=== PATIENT | female | born 1940 | race Caucasian/White ===

== ENCOUNTER 2023-08-16 05:45 | Inpatient (IN) | payer OTHER ==
[2023-08-16] MEDS ORDERED: dilTIAZem HCL 25 MG/5 ML VIAL IV ONE ×2 (06:18→06:47)
[2023-08-16] MEDS ORDERED: TRANEXAMIC ACID 1,000 MG/10 ML VIAL IV ONE (06:18)
[2023-08-16] MEDS ORDERED: LORazepam 2 MG/ML VIAL ONE (06:19)
[2023-08-16] MEDS ORDERED: NA CHLORIDE 0.9% 1,000 ML ONE (06:19)
[2023-08-16] MEDS ORDERED: NA CHLORIDE 0.9% 100 ML ONE ×2 (06:19→06:48)
[2023-08-16] MEDS ORDERED: NA CHLORIDE 0.9% 250 ML ONE ×3 (06:33→14:17)
[2023-08-16] MEDS: dilTIAZem HCL 25 MG/5 ML VIAL IV ONE (06:41)
[2023-08-16 06:55] LABS: Absolute Basophils 0.1 K/uL (0-0.5); Absolute Eosinophils 0.1 K/uL (0-0.5); Absolute Lymphocytes (CBC) 1.8 K/uL (0.7-4.9); Absolute Monocytes 1.1 K/uL (0.1-1.3); Absolute Neutrophil 8.8 K/uL (1.8-8.0); Basophils % 0.4 % (0-1.3); Hematocrit 29.3 % (36.0-45.0); Hemoglobin 9.7 g/dL (12.0-15.0); MCH 30.4 pg (27.0-35.0); MCHC 33.2 g/dL (32.0-36.0); MCV 91.7 fL (80-100); Monocytes % 9.3 % (3.3-12.3); Neutrophils % 74.3 % (41.7-73.7); Nucleated Red Blood Cells % 0.3 % (0-0); Platelets 329 thou/uL (152-406); Red Cell Distribution Width 13.2 % (12.1-15.2)
[2023-08-16] MEDS ORDERED: ALBUMIN HUMAN 25% 100 ML IV ONE (07:01)
[2023-08-16 07:15] LABS: PT Prothrombin Time 13.3 SECONDS (9.5-12.5); Protime INR 1.22
[2023-08-16 07:20] LABS: ALT/SGPT 12 U/L (13-56); AST/SGOT 12 U/L (15-37); Albumin 2.7 g/dL (3.4-5.0); Albumin/Globulin Ratio 0.8 (1.1-1.8); Alkaline Phosphatase 78 U/L (45-117); Anion Gap 5.9 mEq/L (5.0-15.0); BUN Blood Urea Nitrogen 23 mg/dL (7-18); Bicarbonate 29 mEq/L (21-32); Bilirubin Total 0.2 mg/dL (0.2-1.0); Globulin 3.3 g/dL (2.3-3.5); Glomerular Filtration Rate 67 ml/min (=/>90); Glucose Level 114 mg/dL (74-106); NT PRO-BNP 646 pg/mL (<450); Potassium 3.9 mEq/L (3.5-5.1); Sodium Level 139 mEq/L (136-145); Troponin High Sensitivity 14.1 pg/mL (<58.9)
[2023-08-16 07:24] LABS: Bilirubin Direct < 0.1 mg/dL (0-0.2); Bilirubin Indirect, Calculated ND mg/dL (0.2-0.8)
[2023-08-16] MEDS ORDERED: PANTOPRAZOLE 40 MG INJ ONE (07:37)
[2023-08-16] MEDS: PANTOPRAZOLE INJ 80 MG in NA CHLORIDE 0.9% 250 ML IV ONE (08:00)
--- NOTE | 2023-08-16 08:02 | EDPHYS ---
Physician Documentation [facility] Name: Luz Wheatley Age: 83 yrs Sex: Female : 1940 Arrival Date: 08/16/2023 Time: 05:45 Bed 4 Private MD: ED Physician Regan Wright HPI: 08/15 07:39 This 83 yrs old Female presents to ER via EMS with complaints of Rectal Bleeding. sp4 07:53 83-year-old female past medical history of IBS and osteoporosis presents with acute sp4 lower GI bleed associated with a rapid heart rate. Rectal bleed started yesterday. . Patient presents with EMS. She states she takes PRN baby aspirin at home but not on scheduled blood thinners. . Historical: - Allergies: 05:59 No Known Allergies; cm10 - PMHx: 05:59 ibs; Osteoporosis; cm10 - Immunization history:: Adult Immunizations up to date. - Infectious Disease History:: Denies. - Social history:: Smoking status: Patient denies any tobacco usage or history of. - Family history:: not pertinent. ROS: 07:53 Constitutional: Negative for fever, chills, and weight loss, positive anxiety, sp4 positive tachycardia, positive rectal bleed 07:53 All other systems are negative, Exam: 07:53 Constitutional: This is a well developed, well nourished patient who is awake, alert, sp4 frail elderly female pale appearing and tachycardic. Head/Face: Normocephalic, atraumatic. Eyes: Pupils equal round and reactive to light, extra-ocular motions intact. Lids and lashes normal. Conjunctiva and sclera are not injected. Cornea within normal limits. Periorbital areas with no swelling, redness, or edema. ENT: Nares patent. No nasal discharge, no septal abnormalities noted. Tympanic membranes are normal and external auditory canals are clear. Oropharynx with no redness, swelling, or masses, exudates, or evidence of obstruction, uvula midline. Mucous membranes moist. Neck: Trachea midline, no thyromegaly or masses palpated, and no cervical lymphadenopathy. Supple, full range of motion without nuchal rigidity, or vertebral point tenderness. Chest/axilla: Normal chest wall appearance and motion. Nontender with no deformity. No lesions are appreciated. Cardiovascular: Tachycardic on arrival, appears to have regular tachycardia. No gallops, murmurs, or rubs. Normal PMI, no JVD. No pulse deficits. Generalized pallor Respiratory: Lungs have equal breath sounds bilaterally, clear to auscultation and percussion. No rales, rhonchi or wheezes noted. No increased work of breathing, no retractions or nasal flaring. Abdomen/GI: Soft, with normal bowel sounds. No distension or tympany. No guarding or rebound. No evidence of tenderness throughout. Digital rectal exam reveals dark red blood per rectum. Back: No spinal tenderness. No costovertebral tenderness. Skin: Warm, dry with normal turgor. Pale but present , no lesions, and no evidence of cellulitis. MS/ Extremity: Pulses equal, no cyanosis. Neurovascular intact. Full, normal range of motion. Neuro: Awake and alert, GCS 15, oriented to person, place, time, and situation. Cranial nerves II-XII grossly intact. Motor strength 5/5 in all extremities. Sensory grossly intact. Psych: Awake, alert, with orientation to person, place and time. Behavior, mood, and affect are within normal limits 07:53 ECG was reviewed by the Attending Physician. EKG at 0 555 reveals atrial flutter with arrival AV block. Atrial flutter at the rate of 155 Vital Signs: 05:49 BP 129 / 55; Pulse 124; Resp 14; Temp 98.3; Pulse Ox 94% on R/A; Pain 0/10; cm10 06:00 BP 96 / 48; Pulse 155; Resp 20 S; Pulse Ox 94% on R/A; jw7 06:30 BP 100 / 46; Pulse 82; Resp 20 S; Pulse Ox 92% on R/A; jw7 07:00 BP 93 / 53; Pulse 95; Resp 23 S; Pulse Ox 97% on R/A; jw7 07:39 BP 134 / 54; Pulse 85; Resp 16 S; Temp 97.4(O); Pulse Ox 99% on R/A; kc6 09:02 BP 118 / 58; Pulse 85; Resp 18 S; Pulse Ox 99% on R/A; kc6 05:49 Pain Scale: Adult cm10 [place] Coma Score: 07:53 Eye Response: spontaneous(4). Motor Response: obeys commands(6). Verbal Response: sp4 oriented(5). Total: 15. MDM: 05:59 Patient medically screened. sp4 07:58 Differential diagnosis: hemorrhoids, fissure, abscess, condyloma. Data reviewed: vital sp4 signs, nurses notes, EMS record, old medical records, lab test result(s), EKG, radiologic studies, plain films. ED course: CLINICAL HISTORY: CHEST PAIN COMPARISON: None. TECHNIQUE: XR CHEST 1 VIEW 08/16/2023 5:57 AM CDT FINDINGS: The heart is mildly enlarged. Lungs are clear without consolidation, atelectasis, mass or edema. There is no pleural effusion. There is no pneumothorax. There are no acute osseous findings. IMPRESSION: Clear lungs. Electronically signed by: Jairo Mccray MD 08/16/2023 06:47 AM CDT. 08:01 Consideration of Admission/Observation Patient was admitted/placed on observation. sp4 Escalation of care including admission/observation considered. ED course: Patient presents with acute lower GI bleed and a rapid atrial flutter, patient at this time stabilized with 2 units stat blood transfusion and data solutions architect has seen the patient. Dr. Lyman recommended Bleeding Scan and ICU admission. Also 2 Units Platelet transfusion ordered. Patient at this time is stable blood pressure. Patient will be admitted to ICU under Dr. Cruz. Dr. Davidson with general surgery was consulted. Dr. Mcdowell with cardiology was consulted for atrial flutter. Atrial flutter has resolved with Cardizem bolus 10 mg. Patient stable for admission to ICU at this time.. 08/15 05:57 Order name: Basic Metabolic Panel; Complete Time: 07:38 sp4 08/15 05:57 Order name: CBC with Diff; Complete Time: 07:38 4 08/15 05:57 Order name: LFT's; Complete Time: 07:38 sp4 08/15 05:57 Order name: Magnesium; Complete Time: 07:38 4 08/15 05:57 Order name: NT PRO-BNP; Complete Time: 07:38 4 08/15 05:57 Order name: PT-INR; Complete Time: 07:38 sp4 08/15 05:57 Order name: Troponin HS; Complete Time: 07:38 sp4 08/15 05:57 Order name: Type And Screen sp4 08/15 06:24 Order name: Packed RBC Leukored EDMD 08/15 07:22 Order name: ABO/RH no charge; Complete Time: 07:38 EDMD 08/15 10:15 Order name: CBC with Diff iw 08/15 11:07 Order name: CBC with Automated Diff EDMD 08/15 05:57 Order name: XRAY Chest (1 view) sp4 08/15 11:58 Order name: CT EDMD 08/15 13:14 Order name: CT [facility] 08/15 07:30 Order name: CONS Physician Consult [facility] 08/15 05:57 Order name: Cardiac monitoring; Complete Time: 06:36 sp4 08/15 05:57 Order name: EKG - Nurse/Tech; Complete Time: 06:36 sp4 08/15 05:57 Order name: IV Saline Lock; Complete Time: 06:36 sp4 08/15 05:57 Order name: Labs collected and sent; Complete Time: 06:36 sp4 08/15 05:57 Order name: O2 Per Protocol; Complete Time: 06:36 sp4 08/15 05:57 Order name: O2 Sat Monitoring; Complete Time: 06:36 sp4 08/15 05:58 Order name: NPO; Complete Time: 06:46 sp4 08/15 05:59 Order name: Saline Lock; Complete Time: 06:46 4 08/15 06:39 Order name: Labs - recollect needed: RECOLLECT ALL; Complete Time: 06:46 ty EC:53 Rate is 155 beats/min. Rhythm is irregularly irregular, A flutter. QRS [place] is Normal. sp4 QRS interval is normal. QT interval is normal. No ST changes noted. Clinical impression: Atrial Flutter. Interpreted by me. Reviewed by me. Administered Medications: 06:35 Drug: Diltiazem IVP 10 mg IVP once; Over 2 minutes Route: IVP; Site: right forearm; jb4 07:55 Follow up: Response: No adverse reaction; Marked relief of symptoms jw7 06:35 Drug: tranexamic acid 1000 mg IV at calculated rate once; administer at a rate not to jb4 exceed 100 mg per min Route: IV; Rate: calculated rate; Site: right forearm; 06:35 Drug: Ativan IVP 0.5 mg IVP once Route: IVP; Site: right forearm; jb4 06:35 Drug: NS 0.9% IV 1000 ml IV at 125 ml/hr continuous Route: IV; Rate: 125 ml/hr; Site: jb4 right forearm; 09:03 Follow up: Response: No adverse reaction; IV Status: Infusion continued upon admission; kc6 IV Intake: 1000ml 07:15 Not Given (Physician Discretion): wxtjyvf85.5 grams 50 ml IVPB once; (Note: albumin 25% sp4 concentration) 07:15 Drug: Albumin IVPB 25 grams 100 ml IVPB once; (Note: Albumin 25% concentration) Volume: jb4 100 ml; Route: IVPB; Site: right antecubital; 08:08 Follow up: Response: No adverse reaction; IV Status: Completed infusion; IV Intake: kc6 100ml 07:35 Drug: Albumin IVPB 25 grams 100 ml IVPB once; (Note: Albumin 25% concentration) Volume: jb4 100 ml; Route: IVPB; Site: left wrist; 07:49 Follow up: Response: No adverse reaction; IV Status: Completed infusion; IV Intake: kc6 100ml 07:49 Drug: Pantoprazole IVP 80 mg IVP once Route: IVP; Site: right forearm; ph 08:09 Follow up: Response: No adverse reaction kc6 08:09 Drug: Pantoprazole IV 8 mg/hr IV at 25 ml/hr continuous; (Standard dilution is 80 mg in kc6 250 mL NS) Route: IV; Rate: 25 ml/hr; Site: right forearm; 09:02 Follow up: Response: No adverse reaction; IV Status: Infusion continued upon admission; kc6 IV Intake: 250ml Disposition Summary: 08/16/23 08:01 Hospitalization Ordered Notes: Hospitalization Status: Inpatient Admission sp4 Provider: Liam Cruz sp4 Condition: Stable sp4 Problem: new sp4 Symptoms: have improved sp4 Bed/Room Type: Standard sp4 Location: Intensive Care Unit(08/16/23 12:04) [facility] Room Assignment: 8-(08/16/23 12:04) [facility] Diagnosis - GI Bleed/ Gastrointestinal hemorrhage, unspecified sp4 - Acute lower GI bleed, atrial flutter sp4 Discharge Instructions: - Discharge Summary Sheet rn Forms: - SBAR form rn - Medication Reconciliation Form sp4 - Leadership Thank You Letter sp4 Critical care time excluding procedures: 08:03 Critical care time: Bedside Care: 46 minutes, Consultation: 12 minutes. Total time: 58 sp4 minutes Signatures: Dispatcher [employer] EDMS SandyAnnetta Amy Canas, RN RN Allen Figueroa, RN RN jb4 Basim Hastings, RN RN ja1 Corinna Moreau, RN RN kc6 Simi Lopez, PA-C PA-C paradise4 Regan Wright MD MD sp4 Omayra Davidson RN RN cm10 Kailash Orellana Jodi RN jw7 Corrections: (The following items were deleted from the chart) 05:57 05:57 BASIC METABOLIC PANEL+C.LAB.BRZ ordered. EDMS EDMS 05:57 05:57 CBC+H.LAB.BRZ ordered. EDMS EDMS 05:57 05:57 HEPATIC FUNCTION+C.LAB.BRZ ordered. EDMS EDMS 05:57 05:57 MAGNESIUM+C.LAB.BRZ ordered. EDMS EDMS 05:57 05:57 PROBNP+C.LAB.BRZ ordered. EDMS EDMS 05:57 05:57 PROTIME (+INR)+COAG.LAB.BRZ ordered. EDMS EDMS 05:57 05:57 Troponin High Sensitivity+C.LAB.BRZ ordered. EDMS EDMS 05:58 05:57 Chest Single View+RAD.RAD.BRZ ordered. EDMS EDMS 05:58 05:58 TYPE AND SCREEN+BB.LAB.BRZ ordered. EDMS EDMS 06:24 05:58 PACKED RBC LEUKORED+BB.LAB.BRZ ordered. EDMS EDMS 06:24 06:01 ABO/RH typing ordered. EDMS EDMS 06:24 06:01 Antibody Screen ordered. EDMS EDMS 07:52 07:52 BB Add On+BB.LAB.BRZ ordered. EDMS EDMS 09:25 08:01 Intensive Care Unit sp4 bd 09:25 08:01 sp4 bd 12:04 09:25 BR ER HOLD bd ja1 12:04 09:25 ERHOLD- bd ja1
--- NOTE | 2023-08-16 08:02 | ER ---
Nurse's Notes [facility] Name: Luz Wheatley Age: 83 yrs Sex: Female : 1940 Arrival Date: 08/16/2023 Time: 05:45 Bed 4 Private MD: Diagnosis: GI Bleed/ Gastrointestinal hemorrhage, unspecified;Acute lower GI bleed, atrial flutter Presentation: 08/15 05:49 Chief complaint: Patient states: Rectal bleeding onset yesterday at 1530. Pt states cm10 that she was having lower abdominal pain. Pt noted to be bleeding at this time. Coronavirus screen: Client denies travel out of the [place] in the last 14 days. At this time, the client does not indicate any symptoms associated with coronavirus-19. Ebola Screen: Patient denies travel to an Ebola-affected area in the 21 days before illness onset. No symptoms or risks identified at this time. Initial Sepsis Screen: Does the patient meet any 2 criteria? HR > 90 bpm. Does the patient have a suspected source of infection? No. Patient's initial sepsis screen is negative. Risk Assessment: Do you want to hurt yourself or someone else? Patient reports no desire to harm self or others. Onset of symptoms was August 16, 2023. 05:49 Method Of Arrival: EMS: [facility] cm10 05:49 Acuity: DAVID 2 cm10 Triage Assessment: 06:00 General: Appears in no apparent distress. comfortable, Behavior is calm, cooperative. cm10 GI: Rectal exam: Bleeding noted. Historical: - Allergies: 05:59 No Known Allergies; cm10 - PMHx: 05:59 ibs; Osteoporosis; cm10 - Immunization history:: Adult Immunizations up to date. - Infectious Disease History:: Denies. - Social history:: Smoking status: Patient denies any tobacco usage or history of. - Family history:: not pertinent. Screenin:00 [facility] ED Fall Risk Assessment (Adult) History of falling in the last 3 months, jw7 including since admission Yes- single mechanical fall (1 pt) Confusion or Disorientation No (0 pts) Intoxicated or Sedated No (0 pts) Impaired Gait Yes (1 pt) Mobility Assist Device Used No (0 pt) Altered Elimination Yes (1 pt) Score/Fall Risk Level 3 or more points = High Risk Oriented to surroundings, Maintained a safe environment, Educated pt \\T\\ family on fall prevention, incl call for assistance when getting out of bed, Assessed \\T\\ reinforced patient's understanding of fall precautions, Provided non-skid footwear, Hourly rounding (assess needs \\T\\ fall precautionary measures) done. Abuse screen: Denies threats or abuse. Denies injuries from another. Nutritional screening: No deficits noted. Tuberculosis screening: No symptoms or risk factors identified. Assessment: 06:00 General: Appears in no apparent distress. comfortable, Behavior is calm, cooperative, jw7 appropriate for age, anxious. Pain: Complains of pain in abdomen Pain does not radiate. Pain currently is 3 out of 10 on a pain scale. Quality of pain is described as crampy, Pain began suddenly, Is continuous. Neuro: Level of Consciousness is awake, alert, obeys commands, Oriented to person, place, time, situation, Appropriate for age. Cardiovascular: Heart tones S1 S2 present Capillary refill < 3 seconds Clubbing of nail beds is absent JVD is absent Patient's skin is warm and dry. Respiratory: Airway is patent Trachea midline Respiratory effort is even, unlabored, Respiratory pattern is regular, symmetrical. GI: Abdomen is flat, non-distended, Bowel sounds present X 4 quads. Abd is soft and non tender X 4 quads. GI: Reports cramping, bloody stool. : No deficits noted. No signs and/or symptoms were reported regarding the genitourinary system. EENT: No deficits noted. No signs and/or symptoms were reported regarding the EENT system. Derm: Skin is healthy with good turgor, is fragile, Skin is dry, Skin is normal, Skin temperature is warm. Musculoskeletal: Circulation, motion, and sensation intact. Range of motion: intact in all extremities. 06:30 General: Pt stated "I'm passing clots", during brief change large quantities of blood jw7 clots were soaked through brief and had soaked through sheets, blankets and patients gown. Provider called upon finding and emergent orders for massive blood transfusion started per Dr. Wright.. 07:00 General: Appears in no apparent distress. comfortable, well groomed, well developed, kc6 Behavior is calm, cooperative, appropriate for age. Neuro: Level of Consciousness is awake, alert, obeys commands, Oriented to person, place, time, situation, Appropriate for age. Cardiovascular: Denies chest pain, Heart tones S1 S2 present Capillary refill < 3 seconds. Respiratory: Airway is patent Trachea midline Respiratory effort is even, unlabored, Respiratory pattern is regular, symmetrical, Denies shortness of breath. GI: Abdomen is flat, non-distended, Bowel sounds present X 4 quads. Abd is soft and non tender X 4 quads. Reports rectal bleeding, bloody stool, Patient currently denies diarrhea, nausea, vomiting. : No signs and/or symptoms were reported regarding the genitourinary system. EENT: No signs and/or symptoms were reported regarding the EENT system. Derm: Skin is intact, is fragile, with poor turgor Skin is dry, Skin is pale, Skin temperature is cool. Musculoskeletal: No signs and/or symptoms reported regarding the musculoskeletal system. Circulation, motion, and sensation intact. Capillary refill < 3 seconds, Range of motion: intact in all extremities. 07:15 General: Per Dr. Wright, will transfuse two units of Emergent Blood. Two units of O jw7 Negative blood started. See Transfusion Records for vital signs.. 07:38 Reassessment: Dr. Lyman at bedside speaking with pt and family. kc6 08:00 Reassessment: Patient appears in no apparent distress at this time. No changes from kc6 previously documented assessment. Patient and/or family updated on plan of care and expected duration. Pain level reassessed. Patient is alert, oriented x 3, equal unlabored respirations, skin warm/dry/pink. 09:02 Reassessment: Patient appears in no apparent distress at this time. No changes from kc6 previously documented assessment. Patient and/or family updated on plan of care and expected duration. Pain level reassessed. Patient is alert, oriented x 3, equal unlabored respirations, skin warm/dry/pink. Vital Signs: 05:49 BP 129 / 55; Pulse 124; Resp 14; Temp 98.3; Pulse Ox 94% on R/A; Pain 0/10; cm10 06:00 BP 96 / 48; Pulse 155; Resp 20 S; Pulse Ox 94% on R/A; jw7 06:30 BP 100 / 46; Pulse 82; Resp 20 S; Pulse Ox 92% on R/A; jw7 07:00 BP 93 / 53; Pulse 95; Resp 23 S; Pulse Ox 97% on R/A; jw7 07:39 BP 134 / 54; Pulse 85; Resp 16 S; Temp 97.4(O); Pulse Ox 99% on R/A; kc6 09:02 BP 118 / 58; Pulse 85; Resp 18 S; Pulse Ox 99% on R/A; kc6 05:49 Pain Scale: Adult cm10 [place] Coma Score: 07:53 Eye Response: spontaneous(4). Motor Response: obeys commands(6). Verbal Response: sp4 oriented(5). Total: 15. ED Course: 05:49 Patient arrived in ED. cm10 05:55 Regan Wright MD is Attending Physician. sp4 05:59 Triage completed. cm10 06:00 Arm band placed on Patient placed in an exam room, on a stretcher, on dropper tank storage, cm10 on pulse oximetry. 06:00 Patient has correct armband on for positive identification. Placed in gown. Bed in low jw7 position. Call light in reach. Side rails up X2. Provided Education on: Blood Transfusion, Use of Call Light. Door closed. Warm blanket given. Pillow given. 06:00 EKG done, by ED staff, reviewed by Regan Wright MD. cm10 06:15 Initial lab(s) drawn, by me, sent to lab. Inserted saline lock: 20 gauge in left jw7 antecubital area, using aseptic technique. Blood collected. 06:25 XRAY Chest (1 view) In Process Unspecified. EDMS 06:30 One-on-one care X 60 minutes. jw7 06:46 Lab(s) recollected, by me, sent to lab. jw7 06:56 Transfer initiated with Jozef at [facility]. cm10 07:00 Report given to AUDREY Major. jw7 07:00 Report received from Nabila Frank RN \\T\\ AUDREY Ingram. kc6 07:00 Door closed. Noise minimized. Visitors limited. Lights dimmed. Warm blanket given. kc6 07:38 Inserted saline lock: 20 gauge in left wrist, using aseptic technique. kc6 07:46 Amy Law RN is Primary Nurse. ph 08:01 Liam Cruz MD is Hospitalizing Provider. sp4 09:25 No provider procedures requiring assistance completed. Patient admitted, IV remains in ph place. Administered Medications: 06:35 Drug: Diltiazem IVP 10 mg IVP once; Over 2 minutes Route: IVP; Site: right forearm; jb4 07:55 Follow up: Response: No adverse reaction; Marked relief of symptoms jw7 06:35 Drug: tranexamic acid 1000 mg IV at calculated rate once; administer at a rate not to jb4 exceed 100 mg per min Route: IV; Rate: calculated rate; Site: right forearm; 06:35 Drug: Ativan IVP 0.5 mg IVP once Route: IVP; Site: right forearm; jb4 06:35 Drug: NS 0.9% IV 1000 ml IV at 125 ml/hr continuous Route: IV; Rate: 125 ml/hr; Site: jb4 right forearm; 09:03 Follow up: Response: No adverse reaction; IV Status: Infusion continued upon admission; kc6 IV Intake: 1000ml 07:15 Not Given (Physician Discretion): [id number] grams 50 ml IVPB once; (Note: albumin 25% sp4 concentration) 07:15 Drug: Albumin IVPB 25 grams 100 ml IVPB once; (Note: Albumin 25% concentration) Volume: jb4 100 ml; Route: IVPB; Site: right antecubital; 08:08 Follow up: Response: No adverse reaction; IV Status: Completed infusion; IV Intake: kc6 100ml 07:35 Drug: Albumin IVPB 25 grams 100 ml IVPB once; (Note: Albumin 25% concentration) Volume: jb4 100 ml; Route: IVPB; Site: left wrist; 07:49 Follow up: Response: No adverse reaction; IV Status: Completed infusion; IV Intake: kc6 100ml 07:49 Drug: Pantoprazole IVP 80 mg IVP once Route: IVP; Site: right forearm; 08:09 Follow up: Response: No adverse reaction kc6 08:09 Drug: Pantoprazole IV 8 mg/hr IV at 25 ml/hr continuous; (Standard dilution is 80 mg in kc6 250 mL NS) Route: IV; Rate: 25 ml/hr; Site: right forearm; 09:02 Follow up: Response: No adverse reaction; IV Status: Infusion continued upon admission; kc6 IV Intake: 250ml Intake: 07:49 IV: 100ml; Total: 100ml. kc6 08:08 IV: 100ml; Total: 200ml. kc6 09:02 IV: 250ml; Total: 450ml. kc6 09:03 IV: 1000ml; Total: 1450ml. kc6 Outcome: 08:01 Decision to Hospitalize by Provider. sp4 09:25 Admitted to ER Hold. Please see [facility] for further documentation. ph 09:25 Condition: stable 09:25 Instructed on the need for admit, 13:41 Patient left the ED. iw Signatures: Dispatcher [employer] EDCaty Pack, RN AUDREY iw Amy Law RN RN ph Allen Gomez, RN RN jb4 Nabila Frank RN RN Corinna Rodriguez RN RN Regan Russell MD MD sp4 Omayra Davidson RN RN cm10 Corrections: (The following items were deleted from the chart) 07:44 06:30 General: Pt stated "I'm passing clots", during brief change large quantities of jw7 blood clots were soaked through brief and had soaked through sheets, blankets and patients gown. Provider called upon finding and emergent orders for massive blood transfusion started per Dr. Wright.. jw7 07:53 07:15 General: Per Dr. Wright, will transfuse two units of Emergent Blood. Two units jw7 of O Negative blood started.. jw7 09:03 09:02 Response: No adverse reaction; IV Status: Infusion continued upon transfer; IV kc6 Intake: 1000ml kc6
[2023-08-16] MEDS ORDERED: NA CHLORIDE 0.9% 500 ML ONE ×2 (09:43→11:54)
[2023-08-16] MEDS ORDERED: ONDANSETRON 4 MG/2 ML VIAL IV PRN (10:33)
[2023-08-16] MEDS ORDERED: ACETAMINOPHEN 325 MG TABLET PO PRN (10:33)
[2023-08-16] MEDS: D5 0.9 NS 1,000 ML IV SCH (10:33)
[2023-08-16] MEDS: PANTOPRAZOLE INJ 80 MG in NA CHLORIDE 0.9% 250 ML IV SCH (10:33)
[2023-08-16] MEDS ORDERED: ALBUTEROL 2.5 MG/3 ML NEB SOL NEB PRN ×2 (10:33→15:03)
[2023-08-16] MEDS ORDERED: D5 0.9 NS 1,000 ML IV ONE (10:47)
[2023-08-16 11:06] LABS: Absolute Lymphocytes (CBC) 0.6 K/uL (0.7-4.9); Absolute Monocytes 0.1 K/uL (0.1-1.3); Absolute Neutrophil 2.9 K/uL (1.8-8.0); Basophils % 0.4 % (0-1.3); Eosinophils % 0.6 % (0-4.4); Hematocrit 24.3 % (36.0-45.0); Hemoglobin 8.1 g/dL (12.0-15.0); Lymphocytes % 16.1 % (15.3-44.8); MCH 30.6 pg (27.0-35.0); MCHC 33.5 g/dL (32.0-36.0); MCV 91.3 fL (80-100); MPV 8.6 fL (7.6-11.3); Neutrophils % 78.9 % (41.7-73.7); Nucleated Red Blood Cells % 0.1 % (0-0); Platelets 169 thou/uL (152-406); RBC Red Blood Cell Count 2.66 M/uL (3.86-4.86); Red Cell Distribution Width 13.3 % (12.1-15.2)
--- NOTE | 2023-08-16 11:13 | RAD REPORT ---
EXAM DESCRIPTION: XR CHEST 1 VIEW CLINICAL HISTORY: CHEST PAIN COMPARISON: None. TECHNIQUE: XR CHEST 1 VIEW 08/16/2023 5:57 AM CDT FINDINGS: The heart is mildly enlarged. Lungs are clear without consolidation, atelectasis, mass or edema. There is no pleural effusion. There is no pneumothorax. There are no acute osseous findings. IMPRESSION: Clear lungs. Electronically signed by: Jairo Mccray MD 08/16/2023 06:47 AM CDT Due to temporary technical issues with the PACS/Fluency reporting system, reports are being signed by the in house radiologist without review as a courtesy to ensure prompt reporting. The interpreting r adiologist is fully responsible for the content of the report.
[2023-08-16 11:37] VITALS: TEMP 96.9
[2023-08-16] MEDS: OCTREOTIDE ACETATE 100 MCG/ML IV ONE (11:48)
[2023-08-16] MEDS: OCTREOTIDE 500 MCG in NA CHLORIDE 0.9% 500 ML IV SCH (11:48)
[2023-08-16] MEDS ORDERED: OCTREOTIDE ACETATE 100 MCG/ML ONE (11:53)
--- NOTE | 2023-08-16 11:58 | RAD REPORT ---
EXAM DESCRIPTION: CT - Abdomen Angio - 08/16/2023 11:40 am CLINICAL HISTORY: Abdominal pain GI bleeding GI bleed COMPARISON: Abdomen Pelvis W Contrast dated 09/14/2016; Pelvis Angio dated 08/16/2023 TECHNIQUE: CT angiography of the abdomen and pelvis was performed with MIPs. All CT scans are performed using dose optimization technique as appropriate and may include automated exposure control or mA/KV adjustment according to patient size. FINDINGS: Mild linear atelectasis is present in the left lung base. The lungs are otherwise clear. Several gallbladder stones noted. The liver, spleen, pancreas, adrenal glands and kidneys are within normal limits. CT angiography of the abdominal aorta and branch vessels shows no flow limiting stenosis. No aneurysm or dissection seen. Mild aortoiliac atherosclerosis. No contrast blush or collection seen to indicat e active GI bleeding. Moderate stool retention is seen throughout the colon. There is prominent sigmoid diverticulosis with out diverticulitis. Small air bubbles seen in the urinary bladder. IMPRESSION: Aortoiliac atherosclerotic calcifications are seen without flow abnormality evident.No c ontrast blush or focal contrast collection seen to indicate GI bleeding source. There is prominent diverticulosis of the sigmoid colon with moderate fecal retention evident. Cholelithiasis.
[2023-08-16] MEDS ORDERED: AMIODARONE IN DEXTROSE,ISO-OSM 360 MG/200 ML BAG IV ONE (12:40)
--- NOTE | 2023-08-16 12:55 | EKG ---
Test Date: 2023-08-16 Test Time: 05:55:07 Clinical Operations Manager: LILIAN MEASUREMENT RESULTS: Intervals: Rate: 155 [place]: QRSD: 130 QT: 300 QTc: 482 [place]: P: 268 [place]: QRS: -19 T: -57 INTERPRETIVE STATEMENTS: Atrial flutter with variable AV block Nonspecific intraventricular block T wave abnormality, consider inferior ischemia Abnormal ECG Compared to ECG 09/14/2016 20:10:09 T-wave abnormality now present Possible ischemia now present Sinus rhythm no longer present Electronically Signed On 08-16-23 12:54:33 CDT by Vish Mendoza
[2023-08-16] MEDS: AMIODARONE HCL 900 MG in Dextrose 5%-Water 482 ML IV SCH (13:00)
--- NOTE | 2023-08-16 13:13 | RAD REPORT ---
EXAM DESCRIPTION: CT - Pelvis Angio - 08/16/2023 11:40 am CLINICAL HISTORY: Abdominal pain GI bleeding GI bleed COMPARISON: Abdomen Pelvis W Contrast dated 09/14/2016; Pelvis Angio dated 08/16/2023 TECHNIQUE: CT angiography of the abdomen and pelvis was performed with MIPs. All CT scans are performed using dose optimization technique as appropriate and may include automated exposure control or mA/KV adjustment according to patient size. FINDINGS: Mild linear atelectasis is present in the left lung base. The lungs are otherwise clear. Several gallbladder stones noted. The liver, spleen, pancreas, adrenal glands and kidneys are within normal limits. CT angiography of the abdominal aorta and branch vessels shows no flow limiting stenosis. No aneurysm or dissection seen. Mild aortoiliac atherosclerosis. No contrast blush or collection seen to indicat e active GI bleeding. Moderate stool retention is seen throughout the colon. There is prominent sigmoid diverticulosis with out diverticulitis. Small air bubbles seen in the urinary bladder. IMPRESSION: Aortoiliac atherosclerotic calcifications are seen without flow abnormality evident. No contrast blush or focal contrast collection seen to indicate GI bleeding source. There is prominent diverticulosis of the sigmoid colon with moderate fecal retention evident. Cholelithiasis.
[2023-08-16 14:29] VITALS: O2SAT 99
[2023-08-16] MEDS: NOREPINEPHRINE BITARTRATE/D5W 4 MG/250 ML BAG IV ONE (14:53)
[2023-08-16] MEDS ORDERED: NOREPINEPHRINE 4 MG in D5W 250 ML IV SCH (15:00)
[2023-08-16 15:48] VITALS: BMI 22.3
--- NOTE | 2023-08-16 16:34 | P.SSS ---
Patient History Date of Service: 08/16/23 Reason for admission: severe gi bleeding History of Present Illness: Luz has had severe acute lower GI bleed. She also came with rapid a fib. SHe has not taken any nsaids. She is profusely bleeding. Gi doctor and surgeon can't do much here. We have no bleeding scan available. We need to transfer her to tertiary care facility with interventional radiologist and GI specialty surgeon. WIth help of household assistant, [facility] accepted transfer. Allergies No Known Allergies Allergy (Unverified 10/16/11 19:23) Home Medications: Gabapentin [Neurontin*] 100 mg PO BEDTIME 08/16/23 methylPREDNISolone [Methylprednisolone] 4 mg PO SEECOM 08/16/23 - Past Medical/Surgical History Has patient received pneumonia vaccine in the past: Yes Diabetic: Yes - Social History Smoking Status: Never smoker Alcohol use: Yes Place of Residence: Home Review of Systems 10-point ROS is otherwise unremarkable General: Weakness, Malaise Physical Examination - Vital Signs Temperature: 96.9 F Blood Pressure: 118/58 Pulse: 85 Respirations: 18 Pulse Ox (%): 99 - Physical Exam General: Moderate distress HEENT: Atraumatic, PERRLA, Mucous membr. moist/pink, EOMI, Sclerae nonicteric Neck: Supple, 2+ carotid pulse no bruit, No LAD, Without JVD or thyroid abnormality Respiratory: Clear to auscultation bilaterally, Normal air movement Cardiovascular: Irregular heart rate/rhythm, Abnormal S1 S2 Gastrointestinal: Normal bowel sounds, No tenderness Musculoskeletal: No tenderness Integumentary: No rashes Neurological: Normal gait, Normal speech, Normal strength at 5/5 x4 extr, Normal tone, Normal affect Lymphatics: No axilla or inguinal lymphadenopathy - Studies Laboratory Data (last 24 hrs) 08/16/23 08/16/23 08/16/23 06:43 06:43 06:43 WBC 11.80 H Hgb 9.7 L Hct 29.3 L Plt Count 329 PT 13.3 H INR 1.22 Sodium 139 Potassium 3.9 BUN 23 H Creatinine 0.85 Glucose 114 H Magnesium 2.0 Total Bilirubin 0.2 AST 12 L ALT 12 L Alkaline Phosphatase 78 - Diagnosis (Problem(s)) (1) Lower GI bleed Current Visit: Yes Status: Acute Plan: as above urgently transferred to [facility]. (2) Rapid atrial fibrillation Current Visit: Yes Status: Acute Plan: amiodarone drip avoid anticoag for now. (3) Hypovolemic shock Current Visit: Yes Status: Acute Plan: Given 4 units of packed RBCs with severe bleeding and acute drop in hg. - Disposition Disposition: TRANSFER TO [facility] Condition: SERIOUS
--- NOTE | 2023-08-16 16:38 | CON ---
History Of Present Illness: Ms. Wheatley is an 83 years old patient who comes to the ER with rectal bl eeding. She stated that at 3 o'clock, exactly at 3:15 yesterday afternoon she was going to have a wil wel movement normally and then she saw blood and she stated that was not stopping. After that eventu ally stop bleeding. She did not make anything out of it. She was a little bit surprised, but since she did not have any pain she just left it alone. At 3 o'clock in the morning, once again she states she noticed the same and at this time she just call her help and basically about 5 to 6 o'clock in t afternoon when they picked her up they brought her to the ER. The patient diagnosed with GI bleed . She does not recall any previous colonoscopies. She has no GI doctor. She is taking baby aspirin , but no other blood thinners. She does not recall any prior history of bleeding. She denies any tr auma, any dysuria, hematuria, previous hematochezia or previous melena. She does not recall any taylor ge of bowel habits previously and she does not recall any weight loss. She is calm at this moment. She is in ER. She is not in any distress. I am surprised she does not even have abdominal pain. Allergies: NONE. Medical Problems: Include osteoporosis. I could not confirm any history of heart disease. She does not recall any previous surgeries, although I remember seeing her before. I do not have my chart wi th me. Medication: Aspirin. Family History: She does not recall any colon cancer. Review of Systems: See HPI with a GI bleed yesterday and this morning. Physical Examination: General: The patient is awake, alert. Pupils are equal, reactive, anicteric. Chest: Clear. Abdomen: Soft and depressible. There is some mild tenderness in the left lower quadrant. No guardi ng, but there is tenderness in that region. Pelvic/Rectal: Deferred, although she has GI bleed at this moment with some melena present. From th e rectal bleeding, I do not see any active bleeding at this moment, although there is some dark blood near the area. Extremities: Good capillary refill. Laboratory Data: Blood work shows a WBC count of 11.8 with hemoglobin of 9.7, and platelets of 329. INR is 1.22, potassium 3.9, creatinine is 0.85, alkaline phos is 78. No imaging had been done yet. Assessment: This is an 83-year-old patient with a GI bleed. I discussed the case with Dr. Lyman th is morning. There are going to give her some blood products, stabilize her IV fluid. At the same ti me, bleeding scan was ordered. I believe the hospital has no bleeding scan at this moment, not now a nd not for the next 2 weeks. Once again, we are trying to verify that. There is no angio available at this moment too. A CT may be an alternative when she gets stable and obviously GI Dr. Lyman will be seeing her for possible colonoscopy. I already noticed also we have no ICU beds available and th is patient has to be in the ICU. So, I am going to let the medical doctor use judgments on if this p atient needs to be transferred or kept in this institution, because we have limitations at this momen t. If they believe they can handle her, I will be happy to help in the case. The lady knows me and family too. So, they understand that at this moment I cannot localize the area of the bleeding. Lap arotomy with bowel resection may be more extensive than she needs, but as an emergency it may be a li fe-saving procedure. Obviously, she is trying to avoid that if she can, but at the same time. We wi ll follow her vital signs and H and H to see what is the more appropriate step to go. I will follow the patient with you and give more recommendations as the case develops. GARRISON/LINA Voice ID: [id number] Report ID: [id number]
[2023-08-16 18:19] VITALS: BP 104/40
--- NOTE | 2023-08-16 20:00 | CON ---
Date of Consultation: 08/16/2023 Reason For Consultation: Atrial fibrillation with rapid ventricular response. History Of Present Illness: 83-year-old female who presented to the emergency room with a rectal ble ed. She has history of atrial fibrillation. She was only on aspirin, not on anticoagulation and has been having bright red blood per rectum. In the evaluation in emergency room, she was in atrial fib rillation with rapid ventricular response. Currently, at the time of my evaluation, she was in sinus rhythm, rate in the mid 60s, and she feels well. Past Medical History: IBS, osteoporosis, atrial fibrillation. Medications: Refer to reconciliation sheet for detailed list. Allergies: NO KNOWN DRUG ALLERGIES. Family History: No premature coronary artery disease or cancer. Social History: Does not smoke or drink. Does not use any drugs. Review of Systems: All systems reviewed and they were negative except as mentioned in the HPI. Physical Examination: Vital Signs: Reviewed. Head and Neck: Pupils are equal, reactive to light. Intact eye movements. No JVD. No cervical lym phadenopathy. Neck is supple. Thyroid is not enlarged. Lungs: Clear to auscultation bilaterally. No rhonchi, wheezing, or crackles. No accessory muscle u se. Heart: Regular rate and rhythm. No extra sounds. Abdomen: Soft, nontender. Bowel sounds positive. No organomegaly. No masses or hernia. No rigidi ty or rebound. Extremities: No edema, clubbing, or cyanosis. Intact pulses. Skin: No rash. No nodule. Neurologic: Alert, awake, oriented x3. No acute focal deficits appreciated. Lymph Nodes: No cervical or axillary lymphadenopathy. Investigations: BUN is 23, creatinine 0.85. NT-proBNP is 646 and troponin is negative and hemoglobi n is 8.1. Assessment And Recommendations: 1.Atrial fibrillation/flutter with rapid ventricular response. Currently, is in sinus rhythm, on am iodarone. She converted to sinus rhythm. Switch the amiodarone to oral 200 mg twice a day and this patient is not a candidate for anticoagulation due to recent gastrointestinal bleed. 2.Gastrointestinal bleed with acute gastrointestinal blood loss. Recommend evaluation by a GI, ulysses cially rule out peptic ulcer disease. If there is no peptic ulcer disease, then I recommend low-dose aspirin 81 mg daily. 3.Elevated NT-proBNP, probably diastolic heart failure. Obtain an echo. SR/MODL Voice ID: [id number] Report ID: [id number]
--- NOTE | 2023-08-17 03:30 | OP ---
Date of Procedure: 08/16/2023 Surgeon: David Davidson MD Procedure: Central line placement. Indication: This is the case of an 83-year-old patient with lower GI bleed, in need of IV access for blood products, fluids, and also vasoconstrictor. The patient was higher level of care b ecause she needs that care and a central line was requested before transfer because her lines recentl y are not enough. So, we explained to her and the family the benefits, alternatives, and risks of ce ntral line placement which include, but not limited to, infection, bleeding, damage to adjacent struc tures, DVTs, RI, and even . She also understands this may not relieve any symptoms. She might need more than one surgical intervention. She understood, signed a consent. Description Of Procedure: A time-out was called. Right femoral area was prepped and draped in usual sterile fashion. Lidocaine 1% plain was injected for local anesthetic. The area was cleaned. Then after that, we proceeded to inject local anesthetic, followed by 18-gauge needle in the right femora l vein at the first attempt. Excellent backflow and the guidewire was passed through. The needle wa s removed and then a central line triple lumen was placed using Seldinger technique. Excellent backf low and inflow. The line was secured in place with 3-0 nylon and covered with sterile dressings. Th e patient tolerated the procedure well. The line was flushed with saline solution. GARRISON/LINA Voice ID: [id number] Report ID: [id number]
--- NOTE | 2023-08-18 13:13 | EKG ---
Test Date: 2023-08-16 Test Time: 12:26:04 Accounting Policy Consultant: PH MEASUREMENT RESULTS: Intervals: Rate: 123 [place]: QRSD: 72 QT: 320 QTc: 458 [place]: P: AR: QRS: 50 T: 70 INTERPRETIVE STATEMENTS: Atrial fibrillation with rapid ventricular response ST & T wave abnormality, consider inferior ischemia Abnormal ECG Compared to ECG 08/16/2023 07:59:15 ST (T wave) deviation now present Possible ischemia now present Sinus rhythm no longer present Myocardial infarct finding no longer present Electronically Signed On 08-18-23 13:07:42 CDT by Vish Mendoza
--- NOTE | 2023-08-18 13:13 | EKG ---
Test Date: 2023-08-16 Test Time: 07:59:15 Paver Layer: JIMI MEASUREMENT RESULTS: Intervals: Rate: 82 [place]: 128 QRSD: 68 QT: 338 QTc: 394 [place]: P: 56 [place]: 128 QRS: 10 T: 30 INTERPRETIVE STATEMENTS: Normal sinus rhythm Cannot rule out Anterior infarct, age undetermined Abnormal ECG Compared to ECG 08/16/2023 05:55:07 Myocardial infarct finding now present Atrial flutter no longer present T-wave abnormality no longer present Possible ischemia no longer present Electronically Signed On 08-18-23 13:07:50 CDT by Vish Mendoza
== END 2023-08-16 17:00 | disposition short-term general hospital (02) | DRG 377 ==
LOC: ER 05:45 → ERHOLD 07:25 → 3RD-ICU 12:35
PROVIDERS: ADMIT Internal Medicine; ATTEND Internal Medicine
PROC: 30233R1 Transfusion of Nonautologous Platelets into Peripheral Vein, Percutaneous Approach (ICD-10-PCS; principal; 2023-08-16)
PROC: 30233N1 Transfusion of Nonautologous Red Blood Cells into Peripheral Vein, Percutaneous Approach (ICD-10-PCS; 2023-08-16)
PROC: 06HY33Z Insertion of Infusion Device into Lower Vein, Percutaneous Approach (ICD-10-PCS; 2023-08-16)
DX: K62.5 Hemorrhage of anus and rectum (principal); R57.1 Hypovolemic shock; I48.92 Unspecified atrial flutter; M81.0 Age-related osteoporosis without current pathological fracture
CPT/HCPCS: 36415; 71045; 72191; 74175; 80048; 80076; 83735; 83880; 84484; 85025; 85610; 86850; 86900; 86901; 86920; 93005; 99291; 99292; C9113; J0282; J2354; J7030; J7040; J7042; J7050; J7060; P9016; P9035; P9047; P9100; Q9967

== ENCOUNTER 2023-11-11 13:48 | Inpatient (IN) | payer OTHER ==
[2023-11-11] MEDS ORDERED: ONDANSETRON 4 MG (ODT) TAB PO PRN (15:44)
[2023-11-11] MEDS ORDERED: DIPHENHYDRAMINE 25 MG TAB/CAP PO PRN (15:44)
[2023-11-11] MEDS ORDERED: POLYETHYL GLY 3350 17 GM/DOSE PO PRN (15:46)
[2023-11-11] MEDS ORDERED: ACETAMINOPHEN 325 MG TABLET PO PRN (15:57)
[2023-11-11] MEDS: NACHLORIDE 0.45% 1,000 ML IV SCH (16:06)
--- NOTE | 2023-11-11 16:18 | RAD REPORT ---
EXAM DESCRIPTION: CT - Chest Angio - 11/11/2023 3:48 pm CLINICAL HISTORY: Chest pain COMPARISON: None. TECHNIQUE: Dynamically enhanced axial 3 mm thick images of the chest were obtained during administra tion of 100 mL Isovue 370 IV contrast. Coronal and oblique reconstruction images were generated and r eviewed. Exam utilizes a protocol for optimal evaluation of pulmonary arterial tree. Maximum intensity projections 3D imaging was utilized All CT scans are performed using dose optimization technique as appropriate and may include automated exposure control or mA/KV adjustment according to patient size. FINDINGS: A pulmonary embolus is not seen. A thoracic aortic aneurysm is not noted. Dilatation main pulmonary artery Small left pleural effusion. A pericardial effusion is not seen. A lung consolidation is not present. Cholelithiasis IMPRESSION: Negative for a pulmonary embolism. Dilatation main pulmonary artery may indicate pulmonary arterial hypertension
[2023-11-11] MEDS: ENOXAPARIN 60 MG/0.6 ML SQ SCH (16:55)
[2023-11-11 18:42] LABS: PTT, Activated Partial Thromb 26.6 SECONDS (24.3-36.9); Protime INR 1.17
[2023-11-11 18:56] LABS: Albumin 2.7 g/dL (3.4-5.0); Albumin/Globulin Ratio 0.6 (1.1-1.8); Anion Gap 8.8 mEq/L (5.0-15.0); Bilirubin Direct 0.3 mg/dL (0-0.2); Bilirubin Indirect, Calculated 0.2 mg/dL (0.2-0.8); Bilirubin Total 0.5 mg/dL (0.2-1.0); Globulin 4.2 g/dL (2.3-3.5); Potassium 4.8 mEq/L (3.5-5.1); Protein, Total 6.9 g/dL (6.4-8.2); Thyroid Stimulating Hormone 1.5 uIU/mL (0.358-3.740)
[2023-11-11 19:16] LABS: Specific Gravity > 1.030 (1.005-1.030); Sqamous Epithelial <5 /HPF (None Seen); Urine Bacteria <20 /HPF (<20); Urine Bilirubin NEGATIVE (Negative); Urine Blood Negative (Negative); Urine Clarity Extremely Turbid (Clear); Urine Color Yellow (Yellow); Urine Culture Reflex Order NOT NEEDED; Urine Glucose NEGATIVE (Negative); Urine Ketones NEGATIVE (Negative); Urine Microscopic Reflex YN ORDER UMIC; Urine Mucus Slight /HPF (None Seen); Urine Nitrite 2+ (Negative); Urine Protein TRACE (Negative); Urine RBC <5 /HPF (None Seen); Urine Urobilinogen 3+ (Normal); Urine WBC <5 /HPF (<5); Urine pH 7.5 (5.0-7.0)
[2023-11-11 20:00] LABS: Absolute Basophils 0.1 K/uL (0-0.5); Absolute Eosinophils 0.3 K/uL (0-0.5); Absolute Lymphocytes (CBC) 0.9 K/uL (0.7-4.9); Absolute Monocytes 1.3 K/uL (0.1-1.3); Absolute Neutrophil 5.3 K/uL (1.8-8.0); Basophils % 1.1 % (0-1.3); Eosinophils % 4.3 % (0-4.4); Hemoglobin 11.1 g/dL (12.0-15.0); MCH 29.2 pg (27.0-35.0); MCHC 33.8 g/dL (32.0-36.0); MCV 86.4 fL (80-100); MPV 8.8 fL (7.6-11.3); Monocytes % 16.4 % (3.3-12.3); Neutrophils % 67.2 % (41.7-73.7); Nucleated RBC Absolute Count 0.1 (0-0); Nucleated Red Blood Cells % 0.9 % (0-0); Platelets 237 thou/uL (152-406); RBC Red Blood Cell Count 3.82 M/uL (3.86-4.86); Red Cell Distribution Width 15.2 % (12.1-15.2)
--- NOTE | 2023-11-11 22:11 | P.HP ---
Certification for Inpatient Patient admitted to: Observation Practitioner: I am a practitioner with admitting privileges, knowledge of patient current condition, hospital course, and medical plan of care. Services: Services provided to patient in accordance with Admission requirements found in Title 42 Section 412.3 of the Code of Federal Regulations Patient History Date of Service: 11/11/23 Reason for admission: l leg dvt History of Present Illness: Luz recently had severe GI bleed with hypotension. She has been weak and not walking much. She came to office with L leg swelling and I ordered venous doppler that showed exensive DVT in l leg. Ct angio is neg for PE. With recent history of GI bleed I asked Dr. Sinclair to place in IV filter. I just got a call from him that title department manager catheter builder staff does not know how to do IVC filter. She will end up staying here 3 days more if we don't do so. I texted Dr. Tloedo the Medial director to have it done so she can go home in am. Allergies No Known Allergies Allergy (Unverified 10/16/11 19:23) Home medications list reviewed: Yes Home Medications: Amiodarone HCl [Cordarone Tab] 200 mg PO BID 11/11/23 Spironolactone 50 mg PO DAILY 11/11/23 Torsemide 5 mg PO DAILY 11/11/23 - Past Medical/Surgical History Has patient received pneumonia vaccine in the past: Yes Diabetic: No -: AFIB -: CHF - Family History Father -: Lung disease Notes: - COPD Mother -: Heart disease Notes: - CHF - Social History Smoking Status: Never smoker Alcohol use: Yes CD- Drugs: No Caffeine use: Yes Place of Residence: Home Review of Systems 10-point ROS is otherwise unremarkable Physical Examination - Vital Signs Temperature: 96.8 F Blood Pressure: 117/47 Pulse: 65 Respirations: 18 Pulse Ox (%): 92 - Physical Exam General: Oriented x3, Mild distress, Other (anxious) HEENT: Atraumatic, PERRLA, Mucous membr. moist/pink, EOMI, Sclerae nonicteric Neck: Supple, 2+ carotid pulse no bruit, No LAD, Without JVD or thyroid abnormality Respiratory: Clear to auscultation bilaterally, Normal air movement Cardiovascular: Regular rate/rhythm, Normal S1 S2 Gastrointestinal: Normal bowel sounds, No tenderness Musculoskeletal: No tenderness Integumentary: No rashes Neurological: Normal gait, Normal speech, Normal strength at 5/5 x4 extr, Normal tone, Normal affect Lymphatics: No axilla or inguinal lymphadenopathy - Studies Laboratory Data (last 24 hrs) 11/11/23 11/11/23 11/11/23 19:33 17:53 17:53 WBC 7.90 Hgb 11.1 L Hct 33.0 L Plt Count 237 PT 13.0 H INR 1.17 APTT 26.6 Sodium 131 L Potassium 4.8 BUN 28 H Creatinine 1.03 H Glucose 90 Total Bilirubin 0.5 AST 46 H ALT 61 H Alkaline Phosphatase 70 Assessment and Plan - Problems (Diagnosis) (1) DVT, lower extremity Current Visit: Yes Status: Acute Plan: With recent GI bleed she is not safe to continut on any kind of anticoagulation. I asked for IVC filter I also told her and son that filter is not going to cure DVT but will stop it from moving to lungs. 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 I will still try her on Eliquis later is she is able tolerate. Prgonosis is guarded. - Advance Directives Does patient have a Living Will: No Does patient have a Durable POA for Healthcare: No
[2023-11-11] MEDS: AMIODARONE HCL 200 MG TAB PO SCH (22:40)
[2023-11-12 07:13] LABS: Absolute Basophils 0.1 K/uL (0-0.5); Absolute Eosinophils 0.6 K/uL (0-0.5); Absolute Lymphocytes (CBC) 0.9 K/uL (0.7-4.9); Absolute Monocytes 1.3 K/uL (0.1-1.3); Absolute Neutrophil 4.1 K/uL (1.8-8.0); Eosinophils % 8.2 % (0-4.4); Hematocrit 32.2 % (36.0-45.0); Hemoglobin 10.3 g/dL (12.0-15.0); Lymphocytes % 12.7 % (15.3-44.8); MCH 28.2 pg (27.0-35.0); MCHC 31.9 g/dL (32.0-36.0); MCV 88.2 fL (80-100); MPV 8.5 fL (7.6-11.3); Monocytes % 18.9 % (3.3-12.3); Neutrophils % 59.2 % (41.7-73.7); Platelets 281 thou/uL (152-406); RBC Red Blood Cell Count 3.65 M/uL (3.86-4.86); Red Cell Distribution Width 15.3 % (12.1-15.2)
[2023-11-12 07:32] LABS: Magnesium 2.1; Potassium 4.6 mEq/L (3.5-5.1)
[2023-11-12 07:33] LABS: Anion Gap 6.6 mEq/L (5.0-15.0)
[2023-11-12] MEDS ORDERED: TORSEMIDE 10 MG PO SCH (09:00)
[2023-11-12] MEDS ORDERED: HOME MED 1 EA UNK (Spironolactone [Spironolactone] 50 MG Tablet) PO SCH (09:00)
[2023-11-12] MEDS: SPIRONOLACTONE 25 MG TABLET PO SCH (09:00)
[2023-11-12] MEDS: TORSEMIDE 10 MG PO SCH (09:00)
[2023-11-12] MEDS: NA CHLORIDE 0.9% 500 ML ONE (11:44)
[2023-11-12 11:50] VITALS: O2SAT 93
[2023-11-12] MEDS ORDERED: LIDOCAINE 1% 20 ML MDV ONE (12:01)
[2023-11-12] MEDS ORDERED: HEPA 1000U/500MLS 2,000 UNIT/1,000 ML BAG IV ONE (12:01)
[2023-11-12] MEDS ORDERED: MIDAZOLAM HCL 2 MG/2 ML INJ ONE (12:01)
[2023-11-12] MEDS ORDERED: FENTANYL CITR 100 MCG/2 ML ONE (12:02)
--- NOTE | 2023-11-12 13:34 | P.CNS ---
Date of Consult: 11/12/23 Reason for Consult: Placement of IVC filter Chief Complaint: l leg dvt History of Present Illness: patient is a 83-year-old female who recently had severe gastrointestinal bleeding with hypotension. Patient had outpatient ultrasound which demonstrated left leg deep vein thrombosis. She has left leg swelling. The patient has contraindication for anticoagulation because of GI bleeding with hypotension. Because she cannot be anticoagulated, referred for placement of IVC filter. Patient meets criteria for filtration. Allergies No Known Allergies Allergy (Unverified 10/16/11 19:23) Home medications list reviewed: Yes Home Medications: Amiodarone HCl [Cordarone Tab] 200 mg PO BID 11/11/23 Spironolactone 50 mg PO DAILY 11/11/23 Torsemide 5 mg PO DAILY 11/11/23 - Past Medical/Surgical History Diabetic: No -: AFIB -: CHF - Family History Father Medical History: Lung disease Notes: - COPD Mother Medical History: Heart disease Notes: - CHF - Social History Alcohol use: Yes CD- Drugs: No Caffeine use: Yes Place of Residence: Home Physical Examination Temp Pulse Resp BP Pulse Ox 97 F 68 16 129/46 L 90 L 11/12/23 08:00 11/12/23 11:47 11/12/23 11:47 11/12/23 11:47 11/12/23 08:00 General: Alert, In no apparent distress, Oriented x3 HEENT: Atraumatic, Normocephalic, PERRLA Neck: Supple, JVD not distended, No Thyromegaly Respiratory: Clear to auscultation bilaterally, Normal air movement Cardiovascular: No edema, Normal pulses, Regular rate/rhythm Laboratory Data (last 24 hrs) 11/12/23 11/12/23 11/11/23 06:50 06:50 19:33 WBC 6.90 7.90 Hgb 10.3 L 11.1 L Hct 32.2 L 33.0 L Plt Count 281 237 PT INR APTT Sodium 132 L Potassium 4.6 BUN 25 H Creatinine 0.93 Glucose 83 Magnesium 2.1 Total Bilirubin AST ALT Alkaline Phosphatase 11/11/23 11/11/23 17:53 17:53 WBC Hgb Hct Plt Count PT 13.0 H INR 1.17 APTT 26.6 Sodium 131 L Potassium 4.8 BUN 28 H Creatinine 1.03 H Glucose 90 Magnesium Total Bilirubin 0.5 AST 46 H ALT 61 H Alkaline Phosphatase 70 Conclusions/Impression: 1. Patient has left leg deep vein thrombosis 2. Patient is contraindicated for anticoagulation because of gastrointestinal bleeding with hypotension 3. Recommend proceeding with placement of inferior vena cava filter
--- NOTE | 2023-11-12 16:04 | P.DS ---
Admission Date: 11/11/23 Discharge Date: 11/12/23 Reason for Admission: l leg dvt - Problems (1) DVT, lower extremity Current Visit: Yes Status: Acute Brief History of Present Illness: Kayla recently had severe GI bleed with hypotension. She has been weak and not walking much. She came to office with L leg swelling and I ordered venous doppler that showed exensive DVT in l leg. Ct angio is neg for PE. With recent history of GI bleed I asked Dr. Shah to place in IV filter. I just got a call from him that partnership marketing manager tender labor staff does not know how to do IVC filter. She will end up staying here 3 days more if we don't do so. I texted Dr. Toledo the Medial director to have it done so she can go home in am. Hospital Course: KAYLA HAS DVT L LEG BUT HAS HAD SEVERE GI BLEED LATELY. SHE WILL BE UNSAFE ON AC I ASEKD DR. SHAH TO PLACED IN IVC Vital Signs/Physical Exam: Temp Pulse Resp BP Pulse Ox 97 F 68 16 129/46 L 90 L 11/12/23 08:00 11/12/23 11:47 11/12/23 11:47 11/12/23 11:47 11/12/23 08:00 General: Alert, In no apparent distress HEENT: Atraumatic, PERRLA, EOMI Neck: Supple, JVD not distended Respiratory: Clear to auscultation bilaterally, Normal air movement Cardiovascular: Regular rate/rhythm, Normal S1 S2 Gastrointestinal: Normal bowel sounds, No tenderness Musculoskeletal: No tenderness Integumentary: No rashes Neurological: Normal speech, Normal tone, Normal affect Lymphatics: No axilla or inguinal lymphadenopathy Laboratory Data at Discharge: WBC 6.90 thou/uL (4.3-10.9) 11/12/23 06:50 Hgb 10.3 g/dL (12.0-15.0) L 11/12/23 06:50 Hct 32.2 % (36.0-45.0) L 11/12/23 06:50 Plt Count 281 thou/uL (152-406) 11/12/23 06:50 PT 13.0 SECONDS (9.4-12.5) H 11/11/23 17:53 INR 1.17 11/11/23 17:53 APTT 26.6 SECONDS (24.3-36.9) 11/11/23 17:53 Sodium 132 mEq/L (136-145) L 11/12/23 06:50 Potassium 4.6 mEq/L (3.5-5.1) 11/12/23 06:50 BUN 25 mg/dL (7-18) H 11/12/23 06:50 Creatinine 0.93 mg/dL (0.55-1.02) 11/12/23 06:50 Glucose 83 mg/dL (74-106) 11/12/23 06:50 Magnesium 2.1 11/12/23 06:50 Total Bilirubin 0.5 mg/dL (0.2-1.0) 11/11/23 17:53 AST 46 U/L (15-37) H 11/11/23 17:53 ALT 61 U/L (13-56) H 11/11/23 17:53 Alkaline Phosphatase 70 U/L (45-117) 11/11/23 17:53 Home Medications: Amiodarone HCl [Cordarone Tab] 200 mg PO BID 11/11/23 Spironolactone 50 mg PO DAILY 11/11/23 Torsemide 5 mg PO DAILY 11/11/23 Followup: Liam Cruz MD [Primary Care Provider] -
--- NOTE | 2023-11-12 16:21 | P.OP ---
Date of Service: 11/12/23 Findings and Operative Technique Procedures performed Placement of Option Elite inferior vena cava filter History The patient is a 83-year-old female with a history of significant left leg deep vein thrombosis. Patient has gastrointestinal bleeding and hypotension. Because of the gastrointestinal bleeding, she is contraindicated for anticoagulation. Placement of inferior vena cava filter has been requested. Dosimetry Radiation dose: Procedure was performed in the label coder on a Foley Allfitkit system with radiation dose recorded Medications administered: 50 mcg fentanyl for pain control Contrast Volume: 150 Isovue 50 mL Estimated blood loss: Less than 10ml Procedure Informed consent was obtained after a detailed explanation of the risks, benefits and alternatives of the examination. The patient was positioned supine. A time-out was performed. The area of concern was prepped and draped with all elements of maximal sterile barrier technique, including facilities operator hand hygiene, cap, mask, sterile gown and sterile gloves as well sterile ultrasound gel and sterile ultrasound probe cover. Patient was prepped with 2% chlorhexidine prep, and sterile full patient body drape was used. Diagnostic ultrasound was performed to evaluate the arteries for suitability for puncture. Color, duplex and spectral techniques were utilized to evaluate the femoral artery in the groin, as well as the dorsalis pedis and posterior tibial arteries at the ankle and foot. 1% lidocaine was administered at the puncture site locally. Ultrasound demonstrated that the right common femoral vein was patent and suitable for puncture. Under ultrasound guidance, a 21-gauge micro puncture needle was advanced into the right common femoral vein. Wire was placed and the tract was dilated. A 5 Cuban sheath was placed. A 4 Cuban pigtail catheter was introduced into the inferior vena cava where contrast was injected to obtain d iagnostic inferior venacavogram. Subsequently, over the wire, the catheter and sheath were removed and a 6.5 Cuban dilator-sheath assembly was introduced. Under fluoroscopic visualization, Option Elite inferior vena cava filter was advanced, with its nose cone positioned below the level of the renal veins, at the L2 body level. After deployment, venacavogram was again repeated, demonstrating good flow. Exam was concluded, catheter and sheath removed and hemostasis achieved with manual compression. Patient was in good condition. Findings Venacavogram demonstrates that there is a single, patent inferior vena cava. Bilateral single renal vein inflow is visualized at the L1-2 level. The vena cava filter was therefore deployed below the renal veins, with the tip at the L2 body level. Impression Placement of Option Elite, potentially retrievable, inferior vena cava filter.
[2023-11-12 17:37] VITALS: BP 98/45; TEMP 98.3
== END 2023-11-12 17:50 | disposition home or self-care (01) | DRG 301 ==
LOC: 2ND 13:48 → UNDOADMOB 13:48 → 2ND 14:45 → OBSVTOIN 11-12 16:05
PROVIDERS: ADMIT Internal Medicine; ATTEND Internal Medicine
PROC: 06H03DZ Insertion of Intraluminal Device into Inferior Vena Cava, Percutaneous Approach (ICD-10-PCS; principal; 2023-11-12)
DX: I82.411 Acute embolism and thrombosis of right femoral vein (principal); I48.91 Unspecified atrial fibrillation; Z79.899 Other long term (current) drug therapy
CPT/HCPCS: 36415; 71275; 76937; 80048; 80076; 81001; 82565; 83735; 84443; 85025; 85610; 85730; 87040; 99152; 99153; C1769; C1893; G0378; G0379; J1650; J2001; J2250; J3010; J7040; Q9966; Q9967

== ENCOUNTER 2024-04-10 13:18 | Emergency (ER) | payer OTHER ==
[2024-04-10] MEDS ORDERED: FENTANYL CITR 100 MCG/2 ML ONE ×2 (13:45→16:42)
[2024-04-10] MEDS ORDERED: ONDANSETRON 4 MG/2 ML VIAL ONE (13:45)
[2024-04-10] MEDS ORDERED: NA CHLORIDE 0.9% 500 ML ONE (13:46)
[2024-04-10 13:47] LABS: Absolute Eosinophils 0.1 K/uL (0-0.5); Absolute Lymphocytes (CBC) 2.3 K/uL (0.7-4.9); Absolute Monocytes 0.7 K/uL (0.1-1.3); Absolute Neutrophil 3.5 K/uL (1.8-8.0); Basophils % 0.4 % (0-1.3); Hematocrit 33.7 % (36.0-45.0); Hemoglobin 10.9 g/dL (12.0-15.0); Lymphocytes % 34.4 % (15.3-44.8); MCHC 32.3 g/dL (32.0-36.0); MPV 8.7 fL (7.6-11.3); Monocytes % 10.8 % (3.3-12.3); Neutrophils % 52.4 % (41.7-73.7); Platelets 239 thou/uL (152-406); RBC Red Blood Cell Count 3.51 M/uL (3.86-4.86); Red Cell Distribution Width 13.7 % (12.1-15.2)
[2024-04-10 13:54] LABS: PT Prothrombin Time 18.1 SECONDS (9.4-12.5); Protime INR 1.64
[2024-04-10 14:06] LABS: ALT/SGPT 20 U/L (13-56); AST/SGOT 21 U/L (15-37); Albumin 3.1 g/dL (3.4-5.0); Albumin/Globulin Ratio 0.9 (1.1-1.8); Alkaline Phosphatase 91 U/L (45-117); Anion Gap 7.2 mEq/L (5.0-15.0); BUN Blood Urea Nitrogen 43 mg/dL (7-18); Bicarbonate 29 mEq/L (21-32); Bilirubin Direct < 0.2 mg/dL (0-0.2); Bilirubin Indirect, Calculated 0.1 mg/dL (0.2-0.8); Bilirubin Total 0.3 mg/dL (0.2-1.0); Globulin 3.5 g/dL (2.3-3.5); Glomerular Filtration Rate 37 ml/min (=/>90); Glucose Level 97 mg/dL (74-106); Magnesium 2.1 mg/dL (1.6-2.4); NT PRO-BNP 693 pg/mL (<450); Potassium 4.2 mEq/L (3.5-5.1); Protein, Total 6.6 g/dL (6.4-8.2); Sodium Level 139 mEq/L (136-145); Troponin High Sensitivity 11.5 pg/mL (<58.9)
--- NOTE | 2024-04-10 15:11 | RAD REPORT ---
Exam:Pelvis CLINICAL HISTORY: Pelvic pain FINDINGS: Oblique markedly displaced fracture with angulation present at the fracture site proximal right femor al diaphysis. No dislocation
--- NOTE | 2024-04-10 15:12 | RAD REPORT ---
Exam:Femur Right CLINICAL HISTORY: Right leg pain. FINDINGS: Oblique markedly displaced fracture with angulation present at the fracture site proximal right femor al diaphysis. No dislocation
--- NOTE | 2024-04-10 15:13 | RAD REPORT ---
Procedure: Chest Single View HISTORY: Cough COMPARISON: September 2023 FINDINGS: The lungs appear clear of acute infiltrate. No significant pleural effusion noted. The heart is mildly enlarged. Pacemaker leads in place. Scoliosis. Lungs are hyperaerated. IMPRESSION: No acute abnormality is displayed.
--- NOTE | 2024-04-10 15:28 | EDPHYS ---
Physician Documentation [facility] Name: Taylor Wheatley Age: 83 yrs Sex: Female : 1940 Arrival Date: 04/10/2024 Time: 13:[address] Private MD: ED Physician Bhupendra Zuniga HPI: 04/10 15:18 This 83 yrs old Female presents to ER via EMS with complaints of Hip Pain - right. eleonora Historical: - Allergies: 13:27 No Known Allergies; ap3 - Home Meds: 13:27 Xarelto 10 mg oral tablet [Active]; ap3 - PMHx: 13:27 ibs; ibs; Osteoporosis; ap3 - PSHx: 13:27 pacemaker (Osteoporosis); ap3 - Immunization history:: Adult Immunizations unknown. - Infectious Disease History:: Denies. - Social history:: Smoking status: Patient denies any tobacco usage or history of. ROS: 15:20 Constitutional: Negative for fever, chills, and weight loss, Eyes: Negative for injury, eleonora pain, redness, and discharge, ENT: Negative for injury, pain, and discharge, Neck: Negative for injury, pain, and swelling, Cardiovascular: Negative for chest pain, palpitations, and edema, Respiratory: Negative for shortness of breath, cough, wheezing, and pleuritic chest pain, Abdomen/GI: Negative for abdominal pain, nausea, vomiting, diarrhea, and constipation, Back: Negative for injury and pain, : Negative for injury, bleeding, discharge, and swelling, Skin: Negative for injury, rash, and discoloration, Neuro: Negative for headache, weakness, numbness, tingling, and seizure, Psych: Negative for depression, anxiety, suicide ideation, homicidal ideation, and hallucinations, Allergy/Immunology: Negative for hives, rash, and allergies, Endocrine: Negative for neck swelling, polydipsia, polyuria, polyphagia, and marked weight changes, Hematologic/Lymphatic: Negative for swollen nodes, abnormal bleeding, and unusual bruising, 15:20 MS/extremity: Positive for decreased range of motion, deformity, pain, of the lateral aspect of right thigh, right hamstring, medial aspect of right thigh and right quadriceps, Exam: 15:20 Constitutional: This is a well developed, well nourished patient who is awake, alert, eleonora and in no acute distress. Head/Face: Normocephalic, atraumatic. Eyes: Pupils equal round and reactive to light, extra-ocular motions intact. Lids and lashes normal. Conjunctiva and sclera are non-icteric and not injected. Cornea within normal limits. Periorbital areas with no swelling, redness, or edema. ENT: Nares patent. No nasal discharge, no septal abnormalities noted. Tympanic membranes are normal and external auditory canals are clear. Oropharynx with no redness, swelling, or masses, exudates, or evidence of obstruction, uvula midline. Mucous membranes moist. Neck: Trachea midline, no thyromegaly or masses palpated, and no cervical lymphadenopathy. Supple, full range of motion without nuchal rigidity, or vertebral point tenderness. No Meningismus. Chest/axilla: Normal chest wall appearance and motion. Nontender with no deformity. No lesions are appreciated. Cardiovascular: Regular rate and rhythm with a normal S1 and S2. No gallops, murmurs, or rubs. Normal PMI, no JVD. No pulse deficits. Respiratory: Lungs have equal breath sounds bilaterally, clear to auscultation and percussion. No rales, rhonchi or wheezes noted. No increased work of breathing, no retractions or nasal flaring. Abdomen/GI: Soft, non-tender, with normal bowel sounds. No distension or tympany. No guarding or rebound. No evidence of tenderness throughout. Back: No spinal tenderness. No costovertebral tenderness. Full range of motion. Female : Normal external genitalia. Skin: Warm, dry with normal turgor. Normal color with no rashes, no lesions, and no evidence of cellulitis. Neuro: Awake and alert, GCS 15, oriented to person, place, time, and situation. Cranial nerves II-XII grossly intact. Motor strength 5/5 in all extremities. Sensory grossly intact. Cerebellar exam normal. Normal gait. Psych: Awake, alert, with orientation to person, place and time. Behavior, mood, and affect are within normal limits. 15:20 Musculoskeletal/extremity: Extremities: grossly normal except: noted in the medial aspect of right thigh: decreased ROM, pain, ROM: limited active range of motion due to pain, limited passive range of motion due to pain, in the right leg, Circulation is intact in all extremities. the right leg Compartment Syndrome exam of affected extremity: is normal. Weight bearing: is unable to bear weight, DVT Exam: negative Homans' sign noted on exam, no appreciated bluish discoloration, no erythema, no increased warmth, pain, swelling, tenderness, 15:28 ECG was reviewed by the Attending Physician. [facility] Vital Signs: 13:25 BP 151 / 59; Pulse 71; Resp 18; Temp 98.4; Pulse Ox 95% on 2 lpm NC; ap3 14:30 BP 134 / 53; Pulse 90; Resp 16; Pulse Ox 98% on R/A; ko1 14:57 BP 165 / 109; Pulse 94; Resp 17; Pulse Ox 98% ; ko1 16:26 BP 127 / 68; Pulse 61; Resp 16; Pulse Ox 99% ; ko1 16:55 BP 138 / 74; Pulse 64; Resp 17; Pulse Ox 99% ; ko1 MDM: 13:25 Medical Screening Exam initiated [facility] 15:23 Differential diagnosis: hip fracture, intertrochanteric fracture, femoral neck eleonora fracture, femoral shaft fracture. Data reviewed: vital signs, nurses notes, EMS record, lab test result(s), EKG, radiologic studies, CT scan, plain films. Consideration of Admission/Observation Escalation of care including admission/observation considered. I considered the following discharge prescriptions or medication management in the emergency department Medications were administered in the Emergency Department. See MAR. Independent interpretation of the following test(s) in the Emergency Department EKG: See my EKG interpretation above. Test considered but Not performed: CT: no ct c/a/p. Historians other than the Patient: EMS: ems well informed. Care significantly affected by the following chronic conditions: osteoporosis. Counseling: I had a detailed discussion with the patient and/or guardian regarding the historical points, exam findings, and any diagnostic results supporting the discharge/admit diagnosis, the presence of at least one elevated blood pressure reading (>120/80) during this emergency department visit, lab results, the need to transfer to another facility, for higher level of care, [facility] does not immediately have the required specialist. 15:25 ED course: family chose [facility]. [facility] 04/10 13:27 Order name: Basic Metabolic Panel; Complete Time: 15:15 [facility] 04/10 13:27 Order name: CBC with Diff; Complete Time: 15:15 [facility] 04/10 13:27 Order name: LFT's; Complete Time: 15:15 [facility] 04/10 13:27 Order name: Magnesium; Complete Time: 15:15 [facility] 04/10 13:27 Order name: NT PRO-BNP; Complete Time: 15:15 [facility] 04/10 13:27 Order name: PT-INR; Complete Time: 15:15 [facility] 04/10 13:27 Order name: Troponin HS; Complete Time: 15:15 [facility] 04/10 13:27 Order name: XRAY Chest (1 view); Complete Time: 15:15 [facility] 04/10 13:27 Order name: Pelvis XRAY; Complete Time: 15:15 [facility] 04/10 13:27 Order name: Femur Right XRAY; Complete Time: 15:15 [facility] 04/10 15:19 Order name: CT Head C Spine 04/10 13:27 Order name: Cardiac monitoring; Complete Time: 13:29 [facility] 04/10 13:27 Order name: EKG - Nurse/Tech; Complete Time: 14:31 [facility] 04/10 13:27 Order name: IV Saline Lock; Complete Time: 13:29 [facility] 04/10 13:27 Order name: Labs collected and sent; Complete Time: 13:39 [facility] 04/10 13:27 Order name: O2 Per Protocol; Complete Time: 13:30 [facility] 04/10 13:27 Order name: O2 Sat Monitoring; Complete Time: 13:30 [facility] 04/10 15:20 Order name: Splint - Posterior Leg; Complete Time: 16:53 [facility] EC:28 Rate is 60 beats/min. Rhythm is regular. QRS [place] is Normal. [place] interval is normal. QRS eleonora interval is normal. QT interval is normal. No Q waves. T waves are Normal. No ST changes noted. Clinical impression: Abnormal EKG without significant change and No evidence of ischemia. Interpreted by me. Reviewed by me. Administered Medications: 13:47 Drug: NS 0.9% IV 500 ml 500 ml IV at 1 bolus once; to be given as a bolus over 30 ko1 minutes Volume: 500 ml; Route: IV; Rate: 1 bolus; Site: left forearm; 14:56 Follow up: Response: No adverse reaction; IV Status: Completed infusion; IV Intake: ko1 500ml 13:47 Drug: Ondansetron IVP 4 mg IVP once; over 2 minutes Route: IVP; Site: left forearm; ko1 14:02 Follow up: Response: No adverse reaction ko1 13:51 Drug: fentaNYL (PF) IVP 50 mcg IVP once Route: IVP; Site: right forearm; ko1 14:04 Follow up: Response: No adverse reaction ko1 16:45 Drug: fentaNYL (PF) IVP 50 mcg IVP once Route: IVP; Site: right forearm; ko1 16:57 Follow up: Response: No adverse reaction; Pain is decreased ko1 Disposition Summary: 04/10/24 15:28 Transfer Ordered Notes: Transfer Location: [facility] eleonora Reason: Higher level of care eleonora Condition: Stable eleonora Problem: new eleonora Symptoms: have improved eleonora Accepting Physician: TO [facility](04/10/24 16:57) ko1 Diagnosis - Displaced oblique fracture of shaft of right femur, initial encounter for closed eleonora fracture - Fall on same level, unspecified 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 EDMS EDMS 13:27 13:27 CBC+H.LAB.BRZ ordered. EDMS EDMS 13:27 13:27 HEPATIC FUNCTION+C.LAB.BRZ ordered. EDMS EDMS 13:27 13:27 MAGNESIUM+C.LAB.BRZ ordered. EDMS EDMS 13:27 13:27 PROBNP+C.LAB.BRZ ordered. EDMS EDMS 13:27 13:27 PROTIME (+INR)+COAG.LAB.BRZ ordered. EDMS EDMS 13:27 13:27 Troponin High Sensitivity+C.LAB.BRZ ordered. EDMS EDMS 13:28 13:28 Chest Single View+RAD.RAD.BRZ ordered. EDMS EDMS 13:28 13:28 Pelvis+RAD.RAD.BRZ ordered. EDMS EDMS 13:28 13:28 Hip Right 2 View+RAD.RAD.BRZ ordered. EDMS EDMS 13:28 13:28 Femur Right+RAD.RAD.BRZ ordered. EDMS EDMS 14:05 13:27 Urinalysis+U.LAB.BRZ ordered. EDMS EDMS 16:57 15:28 TO GIRISH mora
--- NOTE | 2024-04-10 15:28 | ER ---
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 patient ap3 reports right hip pain. patient denies hitting her head. patient denies LOC. Coronavirus screen: At this time, the client does not indicate any symptoms associated with coronavirus-19. Ebola Screen: No symptoms or risks identified at this time. Initial Sepsis Screen: Does the patient meet any 2 criteria? No. Patient's initial sepsis screen is negative. Does the patient have a suspected source of infection? No. Patient's initial sepsis screen is negative. Risk Assessment: Do you want to hurt yourself or someone else? Patient reports no desire to harm self or others. Onset of symptoms was April 10, 2024. Care prior to arrival: Medication(s) given: 15mg Toradol IV IV initiated. 20 GA, in the right antecubital area. Mechanism of Injury: Fall from standing position. 13:25 Method Of Arrival: EMS: [facility] ap3 13:25 Acuity: DAVID 3 ap3 Triage Assessment: 13:27 General: Appears uncomfortable, Behavior is calm, cooperative, appropriate for age. ap3 Pain: Complains of pain in right hip Pain began suddenly. Neuro: Level of Consciousness is awake, alert, obeys commands, Oriented to person, place, time, situation, Appropriate for age. Cardiovascular: Patient's skin is warm and dry. Respiratory: Airway is patent Respiratory effort is even, unlabored, Respiratory pattern is regular, symmetrical. Derm: Wound noted dorsal aspect of right forearm. Historical: - Allergies: 13:27 No Known Allergies; ap3 - Home Meds: 13:27 Xarelto 10 mg oral tablet [Active]; ap3 - PMHx: 13:27 ibs; ibs; Osteoporosis; ap3 - PSHx: 13:27 pacemaker (Osteoporosis); ap3 - Immunization history:: Adult Immunizations unknown. - Infectious Disease History:: Denies. - Social history:: Smoking status: Patient denies any tobacco usage or history of. Screenin:29 [facility] ED Fall Risk Assessment (Adult) History of falling in the last 3 months, ap3 including since admission Yes- fall prone (multiple falls) (3 pts) Confusion or Disorientation No (0 pts) Intoxicated or Sedated No (0 pts) Impaired Gait Yes (1 pt) Mobility Assist Device Used Yes (1 pt) Altered Elimination No (0 pt) Score/Fall Risk Level 3 or more points = High Risk Oriented to surroundings, Maintained a safe environment, Educated pt \T\ family on fall prevention, incl call for assistance when getting out of bed, Assessed \T\ reinforced patient's understanding of fall precautions, Provided non-skid footwear, Hourly rounding (assess needs \T\ fall precautionary measures) done, Used ambulatory aids as needed (educated on \T\ assisted with), Used gait belt as appropriate Implemented a Fall Risk Plan of Care, Remained w/in arm's length of patient and in sight while toileting, Offered frequent toileting (1:1 observation), Remained with patient while ambulating, Utilized family, sitter, or virtual mine engineering supervisor as indicated. Abuse screen: Denies threats or abuse. Nutritional screening: No deficits noted. Tuberculosis screening: No symptoms or risk factors identified. Assessment: 14:00 Neuro: No deficits noted. Cardiovascular: No deficits noted. Respiratory: No deficits ko1 noted. GI: No deficits noted. : No deficits noted. EENT: No deficits noted. Derm: No deficits noted. Musculoskeletal: Circulation, motion, and sensation intact. Range of motion: limited in right leg Bony deformity noted of right leg Reports pain in right leg. Injury Description: Deformity sustained to right leg is rotated and shortened. Vital Signs: 13:25 BP 151 / 59; Pulse 71; Resp 18; Temp 98.4; Pulse Ox 95% on 2 lpm NC; ap3 14:30 BP 134 / 53; Pulse 90; Resp 16; Pulse Ox 98% on R/A; ko1 14:57 BP 165 / 109; Pulse 94; Resp 17; Pulse Ox 98% ; ko1 16:26 BP 127 / 68; Pulse 61; Resp 16; Pulse Ox 99% ; ko1 16:55 BP 138 / 74; Pulse 64; Resp 17; Pulse Ox 99% ; ko1 ED Course: 13:20 Patient arrived in ED. ko1 13:24 Viola Denton, RN is Primary Nurse. ap3 13:25 Bhupendra Zuniga MD is Attending Physician. eleonora 13:27 Triage completed. ap3 13:27 Dressings: non-adherent dressing x 1 dorsal aspect of right forearm coban x 1. Wound ko1 care: to skin tear was neosporin Patient tolerated well. 13:29 Arm band placed on right wrist. ap3 13:30 Patient has correct armband on for positive identification. Bed in low position. Call ap3 light in reach. Side rails up X2. Provided Education on: call light education. Client placed on continuous cardiac and pulse oximetry monitoring. NIBP monitoring applied. case monitor on. Pulse ox on. NIBP on. 13:39 Basic Metabolic Panel Sent. ko1 13:39 CBC with Diff Sent. ko1 13:39 LFT's Sent. ko1 13:39 Magnesium Sent. ko1 13:39 NT PRO-BNP Sent. ko1 13:39 PT-INR Sent. ko1 13:39 Troponin HS Sent. ko1 13:45 Maintain EMS IV. Dressing intact. Good blood return noted. Site clean \T\ dry. Gauge \T\ ko 1 site: 20g right FA. 14:31 EKG done, by ED staff, reviewed by Bhupendra Zuniga MD. am7 14:31 Warm blanket given. Verbal reassurance given. am7 14:39 XRAY Chest (1 view) In Process Unspecified. EDMS 14:39 Pelvis XRAY In Process Unspecified. EDMS 14:39 Femur Right XRAY In Process Unspecified. EDMS 15:50 CT Head C Spine In Process Unspecified. EDMS 15:50 Dr Zuniga initiated transfer with Clarisa at [facility]. and received [address] Chaparro Paulino. 16:15 aristides with [facility] accepted transfer. bc6 16:27 Patient transferred, IV remains in place. ko1 16:53 Assist provider with fracture care of right leg Obvious deformity is noted. ko1 Circulation, motor and sensation is intact. Set up for procedure. Immobilized with OCL splint, Post immobilization, circulation, motor and sensation remain intact. Patient tolerated well. 16:53 Assisted provider with: in a posterior leg splint of the right Femur. ty Administered Medications: 13:47 Drug: NS 0.9% IV 500 ml 500 ml IV at 1 bolus once; to be given as a bolus over 30 ko1 minutes Volume: 500 ml; Route: IV; Rate: 1 bolus; Site: left forearm; 14:56 Follow up: Response: No adverse reaction; IV Status: Completed infusion; IV Intake: ko1 500ml 13:47 Drug: Ondansetron IVP 4 mg IVP once; over 2 minutes Route: IVP; Site: left forearm; ko1 14:02 Follow up: Response: No adverse reaction ko1 13:51 Drug: fentaNYL (PF) IVP 50 mcg IVP once Route: IVP; Site: right forearm; ko1 14:04 Follow up: Response: No adverse reaction ko1 16:45 Drug: fentaNYL (PF) IVP 50 mcg IVP once Route: IVP; Site: right forearm; ko1 16:57 Follow up: Response: No adverse reaction; Pain is decreased ko1 Medication: 16:26 VIS not applicable for this client. ko1 Intake: 14:56 IV: 500ml; Total: 500ml. ko1 Outcome: 15:28 ER care complete, transfer ordered by MD. crews 16:55 Transferred by ground EMS [facility]. to [facility], Transfer form completed. ko1 X-rays sent w/ patient. 16:55 Condition: stable 16:55 Instructed on the need for transfer, 16:57 Patient left the ED. ko1 Signatures: Dispatcher [employer] EDMS Bhupendra Zuniga MD MD cha Prokisch, Amanda RN RN ap3 Page [place] RN RN ko1 Eula Scott 6 Kailash Orellana Abigail am7 Corrections: (The following items were deleted from the chart) 14:05 14:05 Urinalysis+U.LAB.BRZ drawn and sent. ko1 EDMS 16:26 14:00 BP 131 / 53; Pulse 90bpm; Resp 16bpm; Pulse Ox 98% RA; ko1 ko1
--- NOTE | 2024-04-10 16:15 | RAD REPORT ---
EXAMINATION: CT HEAD WITHOUT CONTRAST CT CERVICAL SPINE WITHOUT CONTRAST CLINICAL INDICATION: Head and neck injury status post fall. Head and neck pain TECHNIQUE: Axial CT images from the skull base to the vertex without intravenous contrast. Axial CT i mages through the cervical spine were obtained without intravenous contrast. Sagittal and coronal reformatted images were created from the data set. Coronal and sagittal reformatted images were creat ed from the data set. One or more of the following dose reduction techniques were used: Automated exposure control, adjustment of the mA and/or kV according to patient size, and/or iterative reconstr uction. Unless otherwise specified, incidental findings do not require dedicated imaging follow-up. [id number]. Comparison: none FINDINGS: An intracranial bleed is not seen. Ventricles are normal in caliber. No significant hypodensity within the brain No extra-axial fluid collection. No fluid within the sinuses/mastoids No fracture or dislocation is seen involving the cervical spine. IMPRESSION: No acute intracranial abnormality noted A cervical fracture is not seen. 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
[2024-04-10 17:08] VITALS: TEMP 98.4
[2024-04-10 17:14] VITALS: O2SAT 99
[2024-04-10 17:15] VITALS: BP 138/74
--- NOTE | 2024-04-11 14:39 | EKG ---
Test Date: 2024-04-10 Test Time: 14:25:39 Cross Tie Maker: AM MEASUREMENT RESULTS: Intervals: Rate: 60 IN: QRSD: 76 QT: 350 QTc: 350 [place]: P: IN: QRS: 28 T: 60 INTERPRETIVE STATEMENTS: Electronic atrial pacemaker Septal infarct, age undetermined Abnormal ECG Compared to ECG 08/16/2023 12:26:04 Myocardial infarct finding now present Atrial fibrillation no longer present ST (T wave) deviation no longer present Possible ischemia no longer present Electronically Signed On 04-11-24 14:38:43 SPECIAL EDUCATOR by Vish Mendoza
== END 2024-04-10 16:57 | disposition short-term general hospital (02) ==
LOC: ER 13:18
DX: S72.331A Displaced oblique fracture of shaft of right femur, initial encounter for closed fracture (principal); W18.30XA Fall on same level, unspecified, initial encounter; Z95.0 Presence of cardiac pacemaker; Z79.01 Long term (current) use of anticoagulants
CPT/HCPCS: 93005; 85025; 80048; 36415; 83735; 85610; 80076; 84484; 83880; 70450; 72125; 71045; 72170; 73552; 99285; J3010 ×2; J2405; J7040; Q9967

== ENCOUNTER 2024-04-15 15:14 | Inpatient (IN) | payer OTHER ==
[2024-04-15] MEDS ORDERED: OXYCODONE HCL 5 MG TAB PO PRN (17:04)
[2024-04-15] MEDS: GABAPENTIN 100 MG CAP PO SCH (19:26)
[2024-04-15] MEDS: MAGNESIUM OXIDE 400 MG TAB PO SCH (19:26)
[2024-04-15] MEDS: DOCUSATE NA 100 MG CAP PO ONE (19:26)
[2024-04-15] MEDS ORDERED: DOCUSATE NA/SENNA CONC 1 TAB PO SCH (21:00)
[2024-04-15 23:33] LABS: Specific Gravity 1.023 (1.005-1.030); Sqamous Epithelial <5 /HPF (None Seen); Urine Bacteria None Seen /HPF (<20); Urine Bilirubin NEGATIVE (Negative); Urine Blood Negative (Negative); Urine Clarity Clear (Clear); Urine Color Yellow (Yellow); Urine Crystals Unidentified Few /HPF (None Seen); Urine Culture Reflex Order NOT NEEDED; Urine Glucose NEGATIVE (Negative); Urine Ketones NEGATIVE (Negative); Urine Micro Reflex YN NO BILL MICROSCOPIC; Urine Mucus Slight /HPF (None Seen); Urine Nitrite NEGATIVE (Negative); Urine Protein TRACE (Negative); Urine RBC <5 /HPF (None Seen); Urine Urobilinogen 2+ (Normal); Urine WBC <5 /HPF (<5); Urine pH 5.5 (5.0-7.0)
--- NOTE | 2024-04-16 00:41 | HP ---
Date of Admission: 04/15/2024 Time Of Service: 6:45 p.m. Chief Complaint: "I fell and broke my right hip." History Of Present Illness: Ms. 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 Typically ambulates with a Rollat or and is usually independent with ADLs including sponge bath versus shower due to declining balance. On April 11, while ambulating in the kitchen without her Rollator, she lost her balance and fell impacting the right hip. She had severe pain. She was brought to [facility]. Imaging daryl ntified a possible fracture that was proximal right femoral diaphysis fracture, noted shaft with an a nterior displacement and apex had lateral angulation. She had imaging of the C-spine negative for an y acute issues. CT scan of her brain also showed no acute findings. She was transferred to [facility] for higher level of care. Orthopedic Surgery there made a diagnosis of right subtr ochanteric femoral shaft fracture and she received cephalomedullary nailing of the right femur fractu re with postoperative status as a weightbearing as tolerated on the right lower extremity. Postopera tive course complicated by anemia down to 6.7 requiring a unit of blood on 04/13 and on 04/14. She s ubsequently was monitored and had stable hemoglobin. Also, she had thrombocytopenia following surger y, but no sign of active bleeding was seen and bleeding probably surgery related. She has been on Xa relto for DVT 10 mg daily, and that was also held for treating chronic atrial fibrillation. In addit ion, amiodarone 200 mg also was for rate control for fibrillation. Postoperatively and after receivi ng blood, hemoglobin remains around 9.3. She was evaluated by therapy service and found to have decl ined significantly in terms of mobility, physical functioning, and ability to perform ADLs and ambula te. She now requires moderate assistance for bed mobilization transfers. She is dependent for lower body dressing, showering, and is only able to ambulate a few steps with a rolling walker with maximu m assistance due to fear of falling. She did have mild changes in orthostatic vitals, but typically stable especially when lying in bed. Sit up pain at most is around 8/10 when mobilizing and transfer ring and when in bed 1 to 2. Her creatinine 1.53 is consistent with mild dehydration. Glucose 108, unremarkable. Potassium 4.6. Platelets 135. She will require continuous monitoring for her medical comorbid conditions in addition to aggressive inpatient rehabilitation to help her return to her semaj or level of functioning and reduce risk of rehospitalization. She is therefore admitted to the [facility] rehabilitation unit for such therapy. Admission to a nursing home facility or home will like ly result in patient not thriving, but becoming worse and potentially worsening the fracture and fall ing again. Past Medical History: Osteoporosis, IVC filter placed, pacemaker placed for bradycardiac episodes. She is on Xarelto for deep vein thrombosis. She has decreased mobility, decreased physical functioni ng. Allergies: NO KNOWN DRUG ALLERGIES. Medications: Tylenol 500 mg every 8 hours as needed, Cordarone 200 mg daily, gabapentin now added 10 0 mg twice daily, Chetopa 5/325 every 6 hours as needed, magnesium oxide 400 mg twice daily, melatonin 3 mg at bedtime. She has Xarelto 10 mg daily, Senokot-S 2 at bedtime, Glycolax 17 g daily. X-ray/imaging: X-ray of the right femur on 04/10 shows right femur acute spiral fracture of the prox imal right femoral diaphysis with near shaft anterior displacement and apex lateral angulation. CT o f the spine on 04/10 showed no acute findings. Chest x-ray on 04/10: Mild atelectasis, consolidatio n in the left lung lobe zone may be due to atelectasis, aspiration and/or infection. There was a sma ll left pleural effusion. Cardiomegaly with pulmonary venous hypertension seen. Laboratory Studies: Hemoglobin 9.3, hematocrit 29.9, platelets 183. Potassium 5.0, glucose 83, BUN 26, creatinine 0.83, calcium 9.9. Family History: Noncontributory. Social History: Patient lives with son in a [facility] home. No alcohol, tobacco, or IV drug use. Review of Systems: Some mild swelling in the lower extremity on the left and right, left from DVT, right from postoperat ashley surgery expected changes. Otherwise, some pain as she notes up to about 8 when she mobilizes and when she is resting in bed, no. She has also admits to some mild hearing loss bilaterally. Otherwi se, she denies any new positives on a 10-point systems review. Current Level Of Functioning: She again ambulates with a rolling walker and she is independent for e ating, supervision for grooming, independent for bathing, moderate assistance for upper body dressing , dependent for lower body dressing and donning and doffing footwear. Dependent for toileting, trans ferring to shower and toilet. For ambulation, maximum assistance or 2 feet only. Physical Examination: Vital Signs: Blood pressure is 124/71, pulse 60, respiratory rate 18, temperature 98, oxygen saturat ion 91%. Weight 120 pounds, height 5 feet 5 inches, BMI 20.0. General: Ms. Wheatley is resting comfortably in bed. She has no in no acute distress. HEENT: She does appear normocephalic, atraumatic. Sclerae anicteric. Oropharynx pink and moist. Neck: Supple. Chest: Clear. Heart: Regular. Extremities: Some arthritic changes in her hands. No significant edema in the lower extremities. G ood hemostasis at the surgical site in the right hip. NEUROLOGIC: She has no focal deficits. She has diffuse weakness of upper and lower extremities. In tact cranial nerves. Intact communication, comprehension, expression. Stocking-glove loss in terms of sensation. Rehab And Medical Assessment And Plan: Ms. Wheatley is an 83-year-old patient admitted to rehabilitati on unit with impairment category 07, fracture of lower extremity. Her impairment group code is 08.11 , unilateral hip fracture. Etiologic diagnosis is right subtrochanteric femur fracture. Her comorbi dities: Decreased mobility, decreased physical functioning, DVT in the left lower extremity. She friedman d constipation up to about yesterday following the fall and she is now doing better, had a good bowel movement. She did have some difficulty in terms of insomnia, but she said once the pain is managed, she is able to sleep very well. Otherwise, the anemia is noted, will be followed and thrombocytopen ia along with renal insufficiency will be addressed. Plan: 1.She will have physical and occupational therapy 3 hours a day, 5/7 days. 2.We will work with hydration orally and if need be by IV to improve the renal function. She is pre renal at this point. 3.We will have incentive spirometry to reduce the risk of aspiration. She did have a chest x-ray brown ggesting some effusion, but that was prior to surgery actually and may repeat chest x-ray depending o n how she is doing in terms of saturations. At this point, saturations are 91% on room air. 4.She will have pain addressed with Chetopa, Tylenol, gabapentin, and magnesium for muscle spasms. 5.Constipation addressed with Senokot . 6.DVT. She does have the Xarelto on board 10 mg daily. Note: Also for bowel movements, Glycolax i s on board. Amiodarone will be used for heart rate control for fibrillation and if need be, EKG will be done to assess the patient's heart rhythm. Comorbidities That Are Impacting Rehabilitation: Currently atrial fibrillation. She is on Xarelto. EKG may be done to closely follow. Also anemia. She received 2 units of blood, will be monitored t o see if she requires more blood. The risk of pneumonia is there. She has incentive spirometry that will be encouraged. Also, she was told of leg exercises to decrease the risk of additional clots fo rming in the lower extremities and hydration to reduce the risk of worsening renal function and urina ry tract infection and she is also working on that. She has a call button and will be calling for al l transfers to reduce risk of falling and if need be, bed alarm to replace if she becomes impulsive. Rehab Specific Plan: Ms. Wheatley will have physical and occupational therapy 3 hours a day, 5/7 days a week and improve her ability to transfer from bed to chair and to a toilet and to shower, on and of f the shower, on and off the toilet, to dress upper and lower body, don and doff footwear and to be a ble to mobilize household distances over 250 feet and go up and down 10 steps with bilateral handrail s and mobilize a wheelchair 250 feet. If need be, Speech therapy will work with her to reduce risk o f aspiration pneumonia, for cognitive issues if they are detected. Ms. Wheatley has a good understanding of the process of admission to the inpatient rehabilitation [facility] and how she will benefit from physical and occupational therapy. She will have 24 hours a day, 7 days a week skilled rehabilitation nursing, daily physician evaluation and management, and social se rvice evaluation and planning for discharge, for equipment needed at home for continued therapy, for followup and to make sure medications are delivered properly. If need be, assistance will be sought from the hospitalist service and orthopedic service. Barriers To Discharge: She did have a tendency to ambulate without a walker and will be strongly enc ouraged and Rollator may be unsafe at this point and the 2-wheeled walker will be the best recommende d means of mobilization. There is family support. She is weightbearing as tolerated. The plan will be for her to go home, but if she is unable to thrive and do well, she may have to go to [facility], which may extend her time prior to going home. Length Of Stay: About 12 days. Disposition: Home. Continue therapy via home health and the hands of family. Prognosis: Good. Code Status: Full code. Rehab Specific Goals: 1.Become independent with upper and lower body dressing, donning and doffing of footwear. 2.Independently perform all activities of daily living. 3.Independently ambulate 250 feet with a rolling walker. 4.Independently mobilize a wheelchair 250 feet. 5.Independently go up and down 10 steps with bilateral handrails. 6.Independently perform all cognitive functioning. The above goals were reviewed with Ms. Wheatley and she is in agreement. By signing this document, I acknowledge I personally performed a full physical examination of Ms. David reyes no later than 24 hours after her admission to the inpatient rehabilitation facility and determine d that she is able to tolerate the above course of treatment at an intensive level for a reasonable p eriod of time. A detailed individualized plan of care for her will be completed by hospital day 4 based on the preadmission screen, history and phy sical and therapy evaluations. SILAS/LINA Voice ID: [id number]
[2024-04-16 05:47] LABS: Absolute Eosinophils 0.2 K/uL (0-0.5); Absolute Lymphocytes (CBC) 1.2 K/uL (0.7-4.9); Absolute Neutrophil 4.7 K/uL (1.8-8.0); Basophils % 0.5 % (0-1.3); Eosinophils % 2.4 % (0-4.4); Lymphocytes % 16.6 % (15.3-44.8); MCH 29.9 pg (27.0-35.0); MCHC 32.2 g/dL (32.0-36.0); MCV 92.9 fL (80-100); MPV 8.6 fL (7.6-11.3); Monocytes % 14.8 % (3.3-12.3); Neutrophils % 65.7 % (41.7-73.7); Platelets 212 thou/uL (152-406); RBC Red Blood Cell Count 3.01 M/uL (3.86-4.86); Red Cell Distribution Width 16.5 % (12.1-15.2)
[2024-04-16 06:17] LABS: Albumin 2.1 g/dL (3.4-5.0); Anion Gap 4.5 mEq/L (5.0-15.0); Magnesium 2.2 mg/dL (1.6-2.4); Potassium 4.5 mEq/L (3.5-5.1); Prealbumin 7.8 mg/dL (20-40)
[2024-04-16] MEDS: AMIODARONE HCL 200 MG TAB PO SCH (09:05)
[2024-04-16] MEDS: RIVAROXABAN 10 MG TABLET PO SCH (09:05)
[2024-04-16] MEDS: FERROUS SULFATE 325 MG TAB PO SCH (09:09)
[2024-04-16] MEDS: NA CHLORIDE 0.9% 1,000 ML IV SCH (15:26)
[2024-04-17] MEDS: ACETAMINOPHEN 500 MG TAB PO PRN (08:34)
[2024-04-17] MEDS: HYDROCODONE/APAP 5/325 MG TAB PO PRN (12:51)
--- NOTE | 2024-04-17 17:19 | P.HP ---
Certification for Inpatient Patient admitted to: Inpatient With expected LOS: >2 Midnights Practitioner: I am a practitioner with admitting privileges, knowledge of patient current condition, hospital course, and medical plan of care. Services: Services provided to patient in accordance with Admission requirements found in Title 42 Section 412.3 of the Code of Federal Regulations Patient History Date of Service: 04/17/24 Reason for admission: BROKE R HIP History of Present Illness: BHARATH SERRATO IS PATINET WITH A FIB, GIBLEED, WHO HAD FALLEN AT HOME AND BROKE R HIP. SHE HAD SURGERY AT [facility] AND NOW HERE FOR PT. SHE HAS HAD SEVERE GI BLEED IN PAST AND HAS BEEN CLEARED FOR XARELTO SHE HAS A FIB BY HISTORY. SHE HAS NO CHEST PAIN FOR NOW. Allergies No Known Allergies Allergy (Verified 04/15/24 17:00) Home Medications: Amiodarone HCl 100 mg PO DAILY 04/15/24 Gabapentin [Neurontin*] 100 mg PO BID 04/15/24 Rivaroxaban [Xarelto*] 10 mg PO DAILY 04/15/24 - Past Medical/Surgical History Has patient received pneumonia vaccine in the past: No Diabetic: No -: AFIB -: CHF - Family History Father -: Lung disease Notes: - COPD Mother -: Heart disease Notes: - CHF - Social History Smoking Status: Never smoker Alcohol use: No CD- Drugs: No Caffeine use: Yes Place of Residence: Home Review of Systems 10-point ROS is otherwise unremarkable General: Weakness Physical Examination - Vital Signs Temperature: 97.2 F Blood Pressure: 118/56 Pulse: 61 Respirations: 18 Pulse Ox (%): 93 - Physical Exam General: In no apparent distress HEENT: Atraumatic, PERRLA, Mucous membr. moist/pink, EOMI, Sclerae nonicteric Neck: Supple, 2+ carotid pulse no bruit, No LAD, Without JVD or thyroid abnormality Respiratory: Clear to auscultation bilaterally, Normal air movement Cardiovascular: Regular rate/rhythm, Normal S1 S2 Gastrointestinal: Normal bowel sounds, No tenderness Musculoskeletal: No tenderness Integumentary: No rashes Neurological: Normal gait, Normal speech, Normal strength at 5/5 x4 extr, Normal tone, Normal affect Lymphatics: No axilla or inguinal lymphadenopathy - Studies Microbiology Data (last 24 hrs): 04/15/24 22:30 Catheterized Urine [place] Count - Final No growth. 04/15/24 22:30 Catheterized Urine - Final No growth. Assessment and Plan - Problems (Diagnosis) (1) Closed right hip fracture Current Visit: Yes Status: Acute Plan: HAS HAD SURGERY CONT ANTIOCAG HISTORY OF A FIB STABLE CONT PT MAY NEED NH AFTER BEING HERE. Qualifiers: Encounter type: initial encounter Qualified Code(s): S72.001A - Fracture of unspecified part of neck of right femur, initial encounter for closed fracture (2) History of atrial fibrillation Current Visit: Yes Status: Acute - Advance Directives Does patient have a Living Will: No Does patient have a Durable POA for Healthcare: No
[2024-04-17] MEDS: ENSURE CLEAR 200 ML CAN PO SCH (19:47)
[2024-04-17] MEDS ORDERED: ENSURE ENLIVE 237 ML CAN PO SCH (20:00)
--- NOTE | 2024-04-17 23:53 | PN ---
Date of Progress Note: 04/17/2024 Time Of Service: 1:20 p.m. Subjective: Ms. Wheatley is mobilizing in the hallway. She does report some more pain in the right hi p surgical site on the right knee which has some mild swelling. The medial aspect of the right knee has more pain than the other areas and lidocaine patch will be placed in that region. Otherwise, she is mobilizing the wheelchair very well using upper extremities. Objective: No fevers, chills, nausea, vomiting, and mild arthralgias, myalgias, and pain in the righ t lower extremity and proximal area where there is right-sided subtrochanteric femur fracture surgica l repair which has multiple surgical sites, 3 areas. Laboratory Studies: White blood cell count 7.1, hemoglobin 9.0, platelets 212. Sodium 139, potassiu m 4.5, chloride 110, carbon dioxide 29, BUN 30, glucose 92, calcium 10.0, magnesium 2.2, albumin 2.1, prealbumin 7.8. Urinalysis shows urobilinogen 2+, total protein trace. X-ray/imaging: No new x-rays or imaging. Medications: Tylenol 500 mg every 8 hours as needed, Durant 5/325 every 6 hours as needed, amiodarone 200 mg daily, Ensure Clear 200 mg twice daily, ferrous sulfate 325 mg daily, gabapentin 100 mg twice daily, lidocaine 2 patches daily as needed, magnesium oxide 400 mg daily, melatonin 3 mg at bedtime. She has Glycolax 17 g daily as needed for constipation, Xarelto 10 mg daily for deep vein thrombus. Physical Examination: Vital Signs: Blood pressure 106/47, pulse 60, respiratory rate 18, temperature 97.4, oxygen saturati on 98%. General: Ms. Wheatley is sitting in a chair, mobilizing the chair around the unit, does have mild-to-m oderate swelling in the right knee and proximal and distal lower extremity following surgery for righ t subtrochanteric femur fracture and there is again some pain to palpation and touch in the medial ri ght knee area. She does not have pain in the calf bilaterally. Progress Made With Physical And Occupational Therapy: With physical therapy today, she did ambulate 10 feet twice with maximum assistance. Complaining of pain as she mobilized. Bed mobility done with maximum assistance. [id number]-lz-[id number] transfer and a rolling walker with maximum assistance, stand-to-pi vot transfer done with maximum assistance. She did mobilize a wheelchair 80 feet and 100 feet with m inimal assistance using bilateral upper extremities. With her occupational therapy, maximum assistan ce for showering and toileting, [id number] transfer, did perform sink side activities of daily li ving with setup assistance, maximum assistance needed for toileting with clothing management and chano ging buttocks region. Lower body dressing and footwear required maximum assistance. Assessment: Ms. Wheatley is an 83-year-old patient with right subtrochanteric fracture. She has had t he fracture surgically repaired. She has decreased mobility, decreased physical functioning, left lo wer extremity DVT. Constipation is improved in addition to anemia, thrombocytopenia, renal insuffici ency, of course pain postoperative. Plan: She will continue with physical and occupational therapy, 3 hours a day, 5 of 7 days. Continu e Durant and Tylenol for pain, amiodarone for blood pressure and heart rate control, ferrous sulfate f or low hemoglobin, gabapentin 100 mg twice daily for neuropathic pain. She has lidocaine patch to th e right medial knee for pain postoperative, swelling, and arthritic changes and Xarelto for DVT treat ment. Comorbidities Impacting Rehabilitation: DVT in the left lower extremity and of course pain in the ri ght medial knee make it difficult for her to mobilize easily as that is limiting factor and pain medi cation had been adjusted including gabapentin, Durant, and regular Tylenol along with magnesium. LB/MARCUSL Voice ID: [id number] Report ID: [id number]
[2024-04-18] MEDS: LIDOCAINE 4% PATCH TOP SCH (07:41)
[2024-04-18] MEDS: MELATONIN 3 MG TABLET PO PRN (21:30)
--- NOTE | 2024-04-18 21:49 | PN ---
Date of Progress Note: 04/18/2024 Time Of Service: 1:25 p.m. Subjective: Ms. Wheatley is sitting in a chair beside her bed. She said the pain in the right knee me dial region is still present. She actually is to have a shower and a pain patch will be placed on th at later. Some pain also proximally in the right hip region. She said there was what looks like a b chad in an area where her undergarment displaced. That area was examined and this was not found. She said perhaps it is not there today, but she will be asking nurse if there is a return of any blis ters in that area. Objective: She denies any acute changes. Review of Systems: No fevers, chills, nausea, vomiting. Mild myalgias, arthralgias. Mild pain in the right medial knee is noted and she has no drainage noted in the right hip surgical site. Physical Examination: Vital Signs: Blood pressure 113/63, pulse 62, respiratory rate 16, temperature 97.7, oxygen saturati on 97%. General: Ms. Wheatley is sitting in a chair beside bed. HEENT: She is normocephalic, atraumatic. Sclerae anicteric. Oropharynx pink, moist. Neck: Supple. Chest: Clear. Extremities: Mild to moderate edema in the right lower extremity all the way from mid leg upwards. Left lower extremity, no significant edema noted, and mild pain to palpation of the medial and latera l right knee. Also some area with sensitivity in the right lateral groin area, which is the surgical site as well. Laboratory Studies: No new laboratory studies. X-ray/imaging: No new x-rays or imaging. Medications: Her medications have been reviewed. She is on Cordarone for blood pressure control, No rco and Tylenol for severe and mild pain respectively. She has Ensure for malnutrition, ferrous sulf ate for anemia, gabapentin for neuropathic pain, lidocaine also applied to the right knee as noted, m elatonin for insomnia, Xarelto for DVT prophylaxis, she has magnesium oxide for muscle spasms, and Gl ycolax for constipation. Progress Made With Physical And Occupational Therapy: Today with her physical therapy, she did compl ete scooting and rolling in bed with moderate assistance and verbal cues. Nno-bh-nlsuy transfers wit h minimum assistance and verbal cues. She did ambulate a rolling walker 15 feet twice with minimum a ssistance. Mobilized a wheelchair 125 feet with minimum assistance for maneuvering. With occupation al therapy, [id number] transfers, a rolling walker, she did 6 sets of that, rest breaks needed, min imal assistance required. Completed toileting and toilet hygiene with min assist to pull up undergar ment. It is noted that the patient did have a strong odor while she was urinating and she did have u rinalysis collected and was on the cranberry 425 mg supplementation daily. Assessment And Plan: Ms. Wheatley is an 83-year-old patient with right subtrochanteric fracture, statu s post surgical repair. She has decreased mobility, decreased physical functioning, likely urinary t ract infection, urinalysis currently being done. She is on cranberry pills now. She has amiodarone for heart rate and blood pressure control, Munday for severe pain, Tylenol for moderate pain, Ensure E nlive for malnutrition, ferrous sulfate for low hemoglobin. She has gabapentin for neuropathic pain, magnesium oxide for muscle spasm, melatonin for insomnia, Glycolax for constipation, and Xarelto for DVT prophylaxis and treatment of DVT. In terms of the plan, she will continue with physical and occ upational therapy as noted. We will continue with comorbid condition medications as well as noted. She is followed by Dr. Cruz, her primary care physician, who was managing her comorbid conditions an d her comorbidities do not negatively impact her rehabilitation, although the pain in the right knee is a somewhat of a limiting factor and again pain patch will be applied there. Gabapentin may be adj usted as appropriate. SILAS/LINA Voice ID: [id number] Report ID: [id number]
--- NOTE | 2024-04-18 22:57 | P.PN ---
Subjective Date of Service: 04/18/24 Chief Complaint: BROKE R HIP Subjective: Improving stable back ain djd Review of Systems 10-point ROS is otherwise unremarkable Physical Examination - Vital Signs Temperature: 97.5 F Blood Pressure: 106/50 Pulse: 60 Respirations: 18 Pulse Ox (%): 94 - Physical Exam General: Alert, In no apparent distress, Mild distress HEENT: Atraumatic, PERRLA, EOMI Neck: Supple, JVD not distended Respiratory: Clear to auscultation bilaterally, Normal air movement Cardiovascular: Regular rate/rhythm, Normal S1 S2 Gastrointestinal: Normal bowel sounds, No tenderness Musculoskeletal: No tenderness Integumentary: No rashes Neurological: Normal speech, Normal tone, Normal affect Lymphatics: No axilla or inguinal lymphadenopathy - Studies Medications List Reviewed: Yes Assessment And Plan - Current Problems (Diagnosis) (1) Closed right hip fracture Current Visit: Yes Status: Acute Plan: HAS HAD SURGERY CONT ANTIOCAG HISTORY OF A FIB STABLE CONT PT MAY NEED NH AFTER BEING HERE. Qualifiers: Encounter type: initial encounter Qualified Code(s): S72.001A - Fracture of unspecified part of neck of right femur, initial encounter for closed fracture (2) History of atrial fibrillation Current Visit: Yes Status: Acute (3) Back pain Current Visit: Yes Status: Acute Plan: gabapentin trial
[2024-04-19] MEDS: CRANBERRY FRUIT EXTRACT 425 MG CAPSULE PO SCH (09:57)
--- NOTE | 2024-04-19 19:20 | P.PN ---
Subjective Date of Service: 04/19/24 Chief Complaint: BROKE R HIP Subjective: Improving stable back ain djd her back pain is lot better. she is asked to raise the heels off the bed. Review of Systems 10-point ROS is otherwise unremarkable General: Weakness Physical Examination - Vital Signs Temperature: 97.6 F Blood Pressure: 113/54 Pulse: 60 Respirations: 18 Pulse Ox (%): 94 - Physical Exam General: Alert, In no apparent distress HEENT: Atraumatic, PERRLA, EOMI Neck: Supple, JVD not distended Respiratory: Clear to auscultation bilaterally, Normal air movement Cardiovascular: Regular rate/rhythm, Normal S1 S2 Gastrointestinal: Normal bowel sounds, No tenderness Musculoskeletal: No tenderness Integumentary: No rashes, Pressure ulcer (stage 1 r heel.), Other Neurological: Normal speech, Normal tone, Normal affect Lymphatics: No axilla or inguinal lymphadenopathy - Studies Medications List Reviewed: Yes Assessment And Plan - Current Problems (Diagnosis) (1) Closed right hip fracture Current Visit: Yes Status: Acute Plan: HAS HAD SURGERY CONT ANTIOCAG HISTORY OF A FIB STABLE CONT PT MAY NEED NH AFTER BEING HERE. SHE WILL NEED PROLIA ON OP BASIS WE WILL DO THIS VIA [facility] TO SEE IF IT IS AFFORDABLE. Qualifiers: Encounter type: initial encounter Qualified Code(s): S72.001A - Fracture of unspecified part of neck of right femur, initial encounter for closed fracture (2) History of atrial fibrillation Current Visit: Yes Status: Acute (3) Back pain Current Visit: Yes Status: Acute Plan: gabapentin trial
[2024-04-20 08:14] LABS: Absolute Eosinophils 0.1 K/uL (0-0.5); Absolute Lymphocytes (CBC) 1.1 K/uL (0.7-4.9); Absolute Monocytes 0.8 K/uL (0.1-1.3); Absolute Neutrophil 4.1 K/uL (1.8-8.0); Basophils % 0.5 % (0-1.3); Eosinophils % 1.7 % (0-4.4); Hematocrit 28.2 % (36.0-45.0); Hemoglobin 9.3 g/dL (12.0-15.0); Lymphocytes % 17.9 % (15.3-44.8); MCH 30.3 pg (27.0-35.0); MCHC 32.8 g/dL (32.0-36.0); MCV 92.2 fL (80-100); MPV 7.8 fL (7.6-11.3); Monocytes % 13.3 % (3.3-12.3); Neutrophils % 66.6 % (41.7-73.7); Nucleated Red Blood Cells % 0.1 % (0-0); Platelets 323 thou/uL (152-406); RBC Red Blood Cell Count 3.06 M/uL (3.86-4.86); Red Cell Distribution Width 16.9 % (12.1-15.2)
[2024-04-20 08:36] LABS: Anion Gap 3.1 mEq/L (5.0-15.0); Magnesium 2.3 mg/dL (1.6-2.4); Potassium 5.1 mEq/L (3.5-5.1); Prealbumin 8.3 mg/dL (20-40)
[2024-04-20] MEDS: NA CHLORIDE 0.9% 1,000 ML IV SCH (15:10)
--- NOTE | 2024-04-20 15:58 | RAD REPORT ---
EXAMINATION: LUMBAR SPINE MULTIPLE VIEWS CLINICAL INDICATION: Female, 83 years old. pain TECHNIQUE: Multiple views of the lumbar spine were obtained. COMPARISON: No prior exam. FINDINGS: For purposes of this dictation, it is assumed that there are 5 lumbar type vertebral bodies. ALIGNMENT: Mild grade 1 anterolisthesis L5 on S1 noted. Mild degenerative levoscoliosis seen. BONES: Vertebral bodies are normal in height. No aggressive osseous lesions. Lateral view is limited by soft tissue interposition. IVC filter noted. DISCS: Vacuum disc degeneration L5-S1 noted. IMPRESSION: No acute lumbar spine abnormality. Moderate spondylosis L5-S1.
--- NOTE | 2024-04-20 16:08 | RAD REPORT ---
EXAM:Sacrum HISTORY: pain COMPARISON: None FINDINGS/IMPRESSION: No acute fracture demonstrated. L5-S1 spondylosis, vacuum disc degeneration with mild anterolisthesis.
[2024-04-20 18:04] LABS: Specific Gravity 1.018 (1.005-1.030); Sqamous Epithelial None Seen /HPF (None Seen); Urine Bacteria None Seen /HPF (<20); Urine Bilirubin NEGATIVE (Negative); Urine Blood 1+ (Negative); Urine Clarity Extremely Turbid (Clear); Urine Color Orange (Yellow); Urine Crystals Unidentified Few /HPF (None Seen); Urine Culture Reflex Order REFLEXED; Urine Glucose NEGATIVE (Negative); Urine Ketones NEGATIVE (Negative); Urine Microscopic Reflex YN ORDER UMIC; Urine Mucus 4+ /HPF (None Seen); Urine Nitrite NEGATIVE (Negative); Urine Protein 3+ (Negative); Urine RBC >50 /HPF (None Seen); Urine Urobilinogen 2+ (Normal); Urine WBC >50 /HPF (<5); Urine WBC Clump Many /HPF (None Seen); Urine Yeast (Budding) Many /HPF (None Seen); Urine pH 7.5 (5.0-7.0)
--- NOTE | 2024-04-20 20:08 | RAD REPORT ---
EXAMINATION: US RIGHT LOWER EXTREMITY VENOUS DOPPLER CLINICAL INDICATION: swelling RIGHT TECHNIQUE: Complete bilateral duplex sonography of the RIGHT lower extremity veins was performed. The examination included compression for vein patency, color Doppler imaging and flow augmentation in response to distal compression of the distal external iliac, common femoral, femoral, popliteal, tibi al, and great and small saphenous veins. COMPARISON: No prior exam. FINDINGS: Duplex sonography testing of the veins of the RIGHT lower extremity was performed. Color flow imaging shows all veins to be compressible with pqap-ca-iqyx color filling. Pulsatile and phasic flow is present within all lower extremity deep and superficial veins examined. IMPRESSION: There is no deep vein or superficial vein thrombosis.
[2024-04-20] MEDS: TRAMADOL HCL 50 MG TAB PO SCH (20:58)
--- NOTE | 2024-04-20 21:55 | P.PN ---
Subjective Date of Service: 04/20/24 Chief Complaint: BROKE R HIP Subjective: C/O voiced stable back ain djd her back pain is lot better. she is asked to raise the heels off the bed. Complains of back pain again today. she says the skin fold is hurting and not the back joints. Review of Systems 10-point ROS is otherwise unremarkable General: Weakness Physical Examination - Vital Signs Temperature: 97.4 F Blood Pressure: 120/55 Pulse: 60 Respirations: 18 Pulse Ox (%): 96 - Physical Exam General: Mild distress, Moderate distress HEENT: Atraumatic, PERRLA, EOMI Neck: Supple, JVD not distended Respiratory: Clear to auscultation bilaterally, Normal air movement Cardiovascular: Regular rate/rhythm, Normal S1 S2 Gastrointestinal: Normal bowel sounds, No tenderness Musculoskeletal: No tenderness Integumentary: No rashes Neurological: Normal speech, Normal tone, Normal affect Lymphatics: No axilla or inguinal lymphadenopathy - Studies Laboratory Data (last 24 hrs) 04/20/24 04/20/24 07:49 07:49 WBC 6.10 Hgb 9.3 L Hct 28.2 L Plt Count 323 Sodium 140 Potassium 5.1 BUN 27 H Creatinine 0.73 Glucose 92 Magnesium 2.3 Medications List Reviewed: Yes Assessment And Plan - Current Problems (Diagnosis) (1) Closed right hip fracture Current Visit: Yes Status: Acute Plan: HAS HAD SURGERY CONT ANTIOCAG HISTORY OF A FIB STABLE CONT PT MAY NEED NH AFTER BEING HERE. SHE WILL NEED PROLIA ON OP BASIS WE WILL DO THIS VIA [facility] TO SEE IF IT IS AFFORDABLE. Qualifiers: Encounter type: initial encounter Qualified Code(s): S72.001A - Fracture of unspecified part of neck of right femur, initial encounter for closed fracture (2) History of atrial fibrillation Current Visit: Yes Status: Acute (3) Back pain Current Visit: Yes Status: Acute Plan: gabapentin trial she is now on Gabapentin, Hydrocodon. Lidocain patch
--- NOTE | 2024-04-20 22:44 | PN ---
Date of Progress Note: 04/20/2024 Time Of Service: 1:15 p.m. Subjective: Ms. Wheatley is doing better. She says she is mobilizing well. Pain in the right hip quang gical site where she had the fracture is managed better. She did have however some pain in the sacru m area and in the lumbar region and she had imaging studies ordered. The sacral study did not show f ractures. There was L5-S1 spondylosis. There is a vacuum disk degeneration with mild anterolisthesi s. Her lumbar spine MRI showed no acute lumbar spine abnormalities, moderate spondylosis at L5-S1. She also had Doppler study done on the right lower extremity. There was no evidence of deep vein thr ombus or superficial vein thrombosis. Her laboratory studies did show white blood cell count 1.6, he moglobin 9.3, platelets 223. Sodium 140, potassium 5.1, chloride 112, carbon dioxide 30, BUN 27, cre atinine 0.73, prealbumin 8.3, albumin 2.0. Objective: Vital Signs: In terms physical examination, blood pressure 120/55, pulse 60, respiratory rate 18, temperature 97.4, oxygen saturation 96%. General: Ms. Wheatley is sitting in a chair beside bed. She again has more discomfort. She has pain patch in the right medial knee. There is still swelling in the right knee and leg, but no significan t worsening swelling noted compared to the last few days. HEENT: Otherwise, normocephalic, atraumatic. Sclerae anicteric. Oropharynx pink and moist. Neck: Supple. Progress Made With Physical And Occupational Therapy: With physical therapy today, she was able to p erform multiple dzm-rr-lwesi transfers with minimum assistance and verbal cues. She ambulated 20 fee t twice, 30 feet twice, and 40 feet twice with contact guard assistance and verbal cues. Wheelchair mobilization was 150 feet independently. With occupational therapy, partial assistance for toilet hy giene to pull her brief up and down, minimum assistance for tqutpj-ko-nlp transfers and cva-yd-hqkti transfers, edge of bed, rolling walker also done. Assessment: Ms. Wheatley is an 83-year-old patient in rehabilitation unit with right subtrochanteric f emur fracture, status post surgical repair. She has decreased mobility, decreased physical functioni ng, hypertension, postsurgical pain, anemia, neuropathic pain. She has DVT in the left lower extremi ty with Xarelto 10 mg daily, Ultram 50 mg twice daily. She is receiving half normal saline for dehyd ration. Plan: 1.She will continue with physical and occupational therapy, 3 hours a day, 5 of 7 days. 2.Her comorbid conditions are managed by Dr. Cruz. In addition, she is receiving IV hydration and pain managed as noted. She has pain patch on the right leg and she has been ruled out for DVT on the right leg and any significant abnormalities in sacrum or lumbar spine after imaging studies were ess entially unremarkable for any of those specific complaints, where some abnormalities were already not ed and again continue all therapy and medications. SILAS/LINA Voice ID: [id number] Report ID: [id number]
[2024-04-21 06:35] LABS: Anion Gap 7.7 mEq/L (5.0-15.0); Potassium 4.7 mEq/L (3.5-5.1)
[2024-04-21] MEDS: CIPROFLOXACIN HCL 500 MG TAB PO SCH (08:43)
--- NOTE | 2024-04-21 14:02 | P.RH.PN ---
Estimated Length of Stay: 14 Expected Discharge Date: 04/27/24 Discharge Disposition Plan: Home Family Support: Yes [facility] Goal: Mobility, Transfers, Self Care Vital Signs: Last Vital Signs Temp 98.2 F 04/21/24 07:00 Pulse 61 04/21/24 07:00 Resp 18 04/21/24 07:00 BP 118/54 L 04/21/24 07:00 Pulse Ox 95 04/21/24 07:00 Laboratory: Laboratory Last Values WBC 6.10 thou/uL (4.3-10.9) 04/20/24 07:49 RBC 3.06 M/uL (3.86-4.86) L 04/20/24 07:49 Hgb 9.3 g/dL (12.0-15.0) L 04/20/24 07:49 Hct 28.2 % (36.0-45.0) L 04/20/24 07:49 MCV 92.2 fL (80-100) 04/20/24 07:49 MCH 30.3 pg (27.0-35.0) 04/20/24 07:49 MCHC 32.8 g/dL (32.0-36.0) 04/20/24 07:49 RDW 16.9 % (12.1-15.2) H 04/20/24 07:49 Plt Count 323 thou/uL (152-406) 04/20/24 07:49 MPV 7.8 fL (7.6-11.3) 04/20/24 07:49 Neutrophils % 66.6 % (41.7-73.7) 04/20/24 07:49 Lymphocytes % 17.9 % (15.3-44.8) 04/20/24 07:49 Monocytes % 13.3 % (3.3-12.3) H 04/20/24 07:49 Eosinophils % 1.7 % (0-4.4) 04/20/24 07:49 Basophils % 0.5 % (0-1.3) 04/20/24 07:49 Absolute Neutrophils 4.1 K/uL (1.8-8.0) 04/20/24 07:49 Absolute Lymphocytes 1.1 K/uL (0.7-4.9) 04/20/24 07:49 Absolute Monocytes 0.8 K/uL (0.1-1.3) 04/20/24 07:49 Absolute Eosinophils 0.1 K/uL (0-0.5) 04/20/24 07:49 Absolute Basophils 0.0 K/uL (0-0.5) 04/20/24 07:49 Sodium 138 mEq/L (136-145) 04/21/24 05:47 Potassium 4.7 mEq/L (3.5-5.1) 04/21/24 05:47 Chloride 109 mEq/L (98-107) H 04/21/24 05:47 Carbon Dioxide 26 mEq/L (21-32) 04/21/24 05:47 Anion Gap 7.7 mEq/L (5.0-15.0) 04/21/24 05:47 BUN 30 mg/dL (7-18) H 04/21/24 05:47 Creatinine 0.79 mg/dL (0.55-1.02) 04/21/24 05:47 Est GFR (CKD-EPI) 73 ml/min (=/>90) L 04/21/24 05:47 Glucose 89 mg/dL (74-106) 04/21/24 05:47 Calcium 9.8 mg/dL (8.5-10.1) 04/21/24 05:47 Magnesium 2.3 mg/dL (1.6-2.4) 04/20/24 07:49 Albumin 2.0 g/dL (3.4-5.0) L 04/20/24 07:49 Prealbumin 8.3 mg/dL (20-40) L 04/20/24 07:49 Urine Color [place] (Yellow) 04/20/24 17:40 Urine Clarity Extremely turbid (Clear) H 04/20/24 17:40 Urine pH 7.5 (5.0-7.0) H 04/20/24 17:40 Ur Specific [place] 1.018 (1.005-1.030) 04/20/24 17:40 Glucose (UA)(Auto) Negative (Negative) 04/20/24 17:40 Urine Ketones Negative (Negative) 04/20/24 17:40 Urine Blood 1+ (Negative) H 04/20/24 17:40 Urine Nitrite Negative (Negative) 04/20/24 17:40 Urine Bilirubin Negative (Negative) 04/20/24 17:40 Urine Urobilinogen 2+ (Normal) H 04/20/24 17:40 Ur Leukocyte Esterase 500 Luis/uL (Negative) H 04/20/24 17:40 Urine RBC >50 /HPF (None Seen) H 04/20/24 17:40 Urine WBC >50 /HPF (<5) H 04/20/24 17:40 Urine WBC Clumps Many /HPF (None Seen) H 04/20/24 17:40 Ur Squamous Epith Cells None seen /HPF (None Seen) 04/20/24 17:40 Unidentified Crystals Few /HPF (None Seen) 04/20/24 17:40 Urine Bacteria None seen /HPF (<20) 04/20/24 17:40 Urine Mucus 4+ /HPF (None Seen) H 04/20/24 17:40 Urine Yeast (Budding) Many /HPF (None Seen) H 04/20/24 17:40 Urine Culture Reflexed Reflexed 04/20/24 17:40 Urine Total Protein 3+ (Negative) H 04/20/24 17:40 Weight: 120 lb Wound Present: No Closed Surgical Incision Present: Yes Negative Pressure Wound Therapy Present: No Physician Update: BIMS 15. She has a UTI and is now on Cipro 500 mg bid for 5 days. She is incontinent of urine and has difficulty. Will do bedside commode trials. She will need a walker and 3-in-one commode. RW 40' with min assist. Transfers with CGA, clothing and foot are CGA. Comment: redness to sacrum Summary: Patient's care plan and group home goals have been reviewed and revised as necessary. Please see the Rehabilitation Signature page for all necessary signatures.
--- NOTE | 2024-04-21 17:41 | P.PN ---
Subjective Date of Service: 04/21/24 Chief Complaint: BROKE R HIP Subjective: Improving stable back ain djd her back pain is lot better. she is asked to raise the heels off the bed. Complains of back pain again today. she says the skin fold is hurting and not the back joints. Her pain is lot better. She is doing PT. Review of Systems 10-point ROS is otherwise unremarkable Physical Examination - Vital Signs Temperature: 98.2 F Blood Pressure: 118/54 Pulse: 61 Respirations: 18 Pulse Ox (%): 95 - Physical Exam General: Mild distress HEENT: Atraumatic, PERRLA, EOMI Neck: Supple, JVD not distended Respiratory: Clear to auscultation bilaterally, Normal air movement Cardiovascular: Regular rate/rhythm, Normal S1 S2 Gastrointestinal: Normal bowel sounds, No tenderness Musculoskeletal: No tenderness Integumentary: No rashes Neurological: Normal speech, Normal tone, Normal affect Lymphatics: No axilla or inguinal lymphadenopathy - Studies Laboratory Data (last 24 hrs) 04/21/24 05:47 Sodium 138 Potassium 4.7 BUN 30 H Creatinine 0.79 Glucose 89 Medications List Reviewed: Yes Assessment And Plan - Current Problems (Diagnosis) (1) Closed right hip fracture Current Visit: Yes Status: Acute Plan: HAS HAD SURGERY CONT ANTIOCAG HISTORY OF A FIB STABLE CONT PT MAY NEED NH AFTER BEING HERE. SHE WILL NEED PROLIA ON OP BASIS WE WILL DO THIS VIA [facility] TO SEE IF IT IS AFFORDABLE. Qualifiers: Encounter type: initial encounter Qualified Code(s): S72.001A - Fracture of unspecified part of neck of right femur, initial encounter for closed fracture (2) History of atrial fibrillation Current Visit: Yes Status: Acute (3) Back pain Current Visit: Yes Status: Acute Plan: gabapentin trial she is now on Gabapentin, Hydrocodon. Lidocain patch she feels lot better. Qualifiers: Back pain location: low back pain (4) Abnormal urinalysis Current Visit: Yes Status: Acute Plan: ua pos no symptoms turbid urine per nurses CIpro for 5 days as she is elderly and high risk Usually asymptomatic are not treated.
[2024-04-22 20:40] VITALS: BMI 20.7
--- NOTE | 2024-04-24 13:08 | P.PN ---
Subjective Date of Service: 04/24/24 Chief Complaint: BROKE R HIP Subjective: Improving She has less complaints today. Back part is doing better. Review of Systems 10-point ROS is otherwise unremarkable General: Weakness Physical Examination - Vital Signs Temperature: 97.6 F Blood Pressure: 111/56 Pulse: 60 Respirations: 17 Pulse Ox (%): 95 - Physical Exam General: Oriented x3, Mild distress, Other (deconditioned.) HEENT: Atraumatic, PERRLA, EOMI Neck: Supple, JVD not distended Respiratory: Clear to auscultation bilaterally, Normal air movement Cardiovascular: Regular rate/rhythm, Normal S1 S2 Gastrointestinal: Normal bowel sounds, No tenderness Musculoskeletal: No tenderness Integumentary: No rashes Neurological: Normal speech, Normal tone, Normal affect Lymphatics: No axilla or inguinal lymphadenopathy - Studies Medications List Reviewed: Yes Assessment And Plan - Current Problems (Diagnosis) (1) Closed right hip fracture Current Visit: Yes Status: Acute Plan: HAS HAD SURGERY CONT ANTIOCAG HISTORY OF A FIB STABLE CONT PT MAY NEED NH AFTER BEING HERE. SHE WILL NEED PROLIA ON OP BASIS WE WILL DO THIS VIA [facility] TO SEE IF IT IS AFFORDABLE. Qualifiers: Encounter type: initial encounter Qualified Code(s): S72.001A - Fracture of unspecified part of neck of right femur, initial encounter for closed fracture (2) History of atrial fibrillation Current Visit: Yes Status: Acute (3) Back pain Current Visit: Yes Status: Acute Plan: gabapentin trial she is now on Gabapentin, Hydrocodon. Lidocain patch she feels lot better. Qualifiers: Back pain location: low back pain (4) Abnormal urinalysis Current Visit: Yes Status: Acute Plan: ua pos no symptoms turbid urine per nurses CIpro for 5 days as she is elderly and high risk Usually asymptomatic are not treated.
[2024-04-24] MEDS: POLYETHYL GLY 3350 17 GM/DOSE PO PRN (15:44)
--- NOTE | 2024-04-24 21:28 | PN ---
Date of Progress Note: 04/24/2024 Time Of Service: 1:20 p.m. Subjective: Ms. Wheatley is doing very well. She is very happy with her therapy. The pain in the rig ht hip fracture site has mitigated. She is mobilizing well, transferring well. Objective: She denies any significant fevers, chills, nausea, vomiting. Some mild swelling in the r ight lower extremity that is improving. Physical Examination: Vital Signs: Blood pressure 111/47, pulse 60, respiratory rate 18, temperature 97.6, oxygen saturati on 97%. General: Again, Ms. Wheatley is sitting in a chair between therapy sessions. HEENT: She appears normocephalic, atraumatic. Sclerae anicteric. Oropharynx moist. Neck: Supple. Chest: Clear. Extremities: No significant clubbing, cyanosis, or edema. Expected postoperative changes in the rig ht lower extremity. Has good hemostasis at the right hip surgical site. Laboratory Studies: No new laboratory studies. X-ray/imaging: No new x-ray or imaging. Note, she is followed by Dr. Cruz, her primary care physician, who is managing her comorbid conditio ns. Progress Made With Physical And Occupational Therapy: Today, with physical therapy, she did supine-t o-sit transfers independently. Multiple kru-gp-vaken transfers done with standby assistance and verb al cues. She was able to ambulate with a rolling walker 40 feet twice, 60 feet, 110 feet, all with s tandby assistance and verbal cues. Mobilized wheelchair 175 feet independently and she ascended and descended 3 steps and 6 steps with bilateral handrails with standby assistance. With occupational th erapy, ambulated from room to bathroom with a rolling walker with contact guard assistance. She did work on doing her pull-ups, up and down her undergarments and was able to remain on the toilet to com plete her session, and did require some help with cleaning her perineal area. Assessment And Plan: Ms. Wheatley is an 83-year-old patient in rehabilitation unit with a right subtro chanteric femur fracture, status post surgical repair. She has decreased mobility, decreased physica l functioning. She is treated for urinary tract infection by Dr. Cruz with Cipro. She has amiodaro ne for hypertension, Ensure Clear and ferrous sulfate for malnutrition and anemia. She has gabapenti n for neuropathic pain, melatonin for insomnia, magnesium oxide for muscle spasms, Xarelto 10 mg geena y for left leg deep vein thrombosis. She is cleared for deep vein thrombosis in the right lower extr emity. She has tramadol for pain. Note, in terms of her plan, she will continue with physical and o ccupational therapy, and continue with comorbid condition medications that are managed by Dr. Cruz. Plan is for discharge in 2 days and continue therapy via Home Health. SILAS/LINA Voice ID: [id number] Report ID: [id number]
--- NOTE | 2024-04-25 12:22 | P.PN ---
Subjective Date of Service: 04/25/24 Chief Complaint: BROKE R HIP Subjective: Improving She has less complaints today. Back part is doing better. she says she is better daily. Review of Systems 10-point ROS is otherwise unremarkable General: Weakness, Malaise Physical Examination - Vital Signs Temperature: 98.2 F Blood Pressure: 98/43 Pulse: 60 Respirations: 16 Pulse Ox (%): 96 - Physical Exam General: Mild distress HEENT: Atraumatic, PERRLA, EOMI Neck: Supple, JVD not distended Respiratory: Clear to auscultation bilaterally, Normal air movement Cardiovascular: Regular rate/rhythm, Normal S1 S2 Gastrointestinal: Normal bowel sounds, No tenderness Musculoskeletal: No tenderness Integumentary: No rashes Neurological: Normal speech, Normal tone, Normal affect Lymphatics: No axilla or inguinal lymphadenopathy - Studies Medications List Reviewed: Yes Assessment And Plan - Current Problems (Diagnosis) (1) Closed right hip fracture Current Visit: Yes Status: Acute Plan: HAS HAD SURGERY CONT ANTIOCAG HISTORY OF A FIB STABLE CONT PT MAY NEED NH AFTER BEING HERE. SHE WILL NEED PROLIA ON OP BASIS WE WILL DO THIS VIA [facility] TO SEE IF IT IS AFFORDABLE. Qualifiers: Encounter type: initial encounter Qualified Code(s): S72.001A - Fracture of unspecified part of neck of right femur, initial encounter for closed fracture (2) History of atrial fibrillation Current Visit: Yes Status: Acute (3) Back pain Current Visit: Yes Status: Acute Plan: gabapentin trial she is now on Gabapentin, Hydrocodon. Lidocain patch she feels lot better. Qualifiers: Back pain location: low back pain (4) Abnormal urinalysis Current Visit: Yes Status: Acute Plan: ua pos no symptoms turbid urine per nurses CIpro for 5 days as she is elderly and high risk Usually asymptomatic are not treated.
--- NOTE | 2024-04-25 19:54 | RAD REPORT ---
EXAM: XR of the abdomen HISTORY: Abdominal pain constipation COMPARISON: None FINDINGS: XR of the abdomen shows a nonobstructive bowel gas pattern. Moderate retained stool.. SVC f ilter. No suspicious calcifications are seen. Mild levoscoliosis of lumbar spine. Small left pleural effusion. IMPRESSION: Moderate constipation.
--- NOTE | 2024-04-25 22:21 | PN ---
Date of Progress Note: 04/25/2024 Time Of Service: 1:10 p.m. Subjective: Ms. Wheatley is very happy. She was going to be discharged in the morning, will continue therapy via Home Health. She does report today some mild increase in pain in the right hip fracture where the surgical site is. In addition, she did report some lightheadedness with standing and ortho static symptoms when her blood pressure in the morning was found around systolic in the 90s. Her ami odarone, which is 200 mg daily was held at that point and was subsequently given when the systolic bl ood pressure was 128. Following that, she did have also some more symptoms of orthostasis. This was discussed with Dr. Cruz and medication was put on parameters for hold if systolic is less than 120 and the dosage was cut from 200 mg in morning to 100 mg. Review of Systems: She reports some fatigue, orthostatic symptoms, some dizziness on standing, mild pain in the right lo wer extremity, and in the medial area. She does have DVT in the left lower extremity and is being tr eated with anticoagulation. Physical Examination: Vital Signs: Blood pressure 98/43, pulse of 60, respiratory rate 16, temperature 98.2, oxygen satura tion 96%. General: Ms. Wheatley is sitting in a chair again beside her bed. HEENT: She appears normocephalic, atraumatic. Sclerae anicteric. Oropharynx pink and moist. Extremities: Right lower extremity: She is well bandaged and has good hemostasis of the right hip s urgical site at the lateral thigh and the knee area. She does have a lidocaine patch in the medial k nee. Xbia-nw-wiookgmj swelling in the right lower extremity from the postoperative state and very mi nimal swelling in the left lower extremity where she has DVT in place. Laboratory Studies: No new laboratory studies. X-ray/imaging: No new x-rays or imaging. Medications: Medications have been reviewed and as noted there was a decrease of the amiodarone from 200 mg daily to 100 mg daily. All other medications are continued unchanged. Progress Made With Physical And Occupational Therapy: Today with physical therapy, she did complete gait training covering 50 feet 3 times with standby assistance and she mobilized wheelchair 250 feet independently. Bed mobility independent, completed multiple knk-xn-vodei transfers independently, st andby assistance for stand pivot transfers. She did have decreased balance. With occupational thera py, she was able to perform functional transfers with contact guard assistance. She did do a stand t ransfer technique while in weightbearing as tolerated status with right lower extremity. She did con tact guard assistance for that. Performed lower body dressing, use of Depends pullup underwear with assistive device and supervision required. Assessment: Ms. Wheatley is an 83-year-old patient in rehabilitation unit with a right subtrochanteric femur fracture, was making good progress overall with physical and occupational therapy given her to uchdown weightbearing status. She has comorbid DVT in the left lower extremity. She has postop swel ling in the right lower extremity. In addition to having amiodarone for blood pressure control, she does have significant orthostatic low blood pressures and again amiodarone has been held as it may lo wer blood pressure, was there to manage her cardiac rhythm. She does have the gabapentin for neuropa thic pain, ferrous sulfate for iron deficiency anemia. She has Ensure for malnutrition, lidocaine pa tch is applied for pain in the right knee, magnesium oxide for muscle spasm, melatonin for insomnia. She has Xarelto 10 mg daily for DVT prophylaxis and tramadol for pain. Plan: She will have physical, occupational therapy, and speech therapy continued for 3.5 hours, 5 of 7 days. She will continue with comorbid condition medications, which are noted and she will be discharged home in the morning and follow up with Dr. Cruz, primary care physician and orthopedic brown david as scheduled. SILAS/LINA Voice ID: [id number] Report ID: [id number]
[2024-04-26 05:19] LABS: Absolute Eosinophils 0.2 K/uL (0-0.5); Absolute Lymphocytes (CBC) 1.6 K/uL (0.7-4.9); Absolute Monocytes 0.8 K/uL (0.1-1.3); Absolute Neutrophil 2.8 K/uL (1.8-8.0); Basophils % 0.5 % (0-1.3); Eosinophils % 2.9 % (0-4.4); Hematocrit 27.7 % (36.0-45.0); Hemoglobin 9.2 g/dL (12.0-15.0); Lymphocytes % 29.3 % (15.3-44.8); MCH 30.9 pg (27.0-35.0); MCHC 33.2 g/dL (32.0-36.0); MPV 7.9 fL (7.6-11.3); Monocytes % 14.7 % (3.3-12.3); Neutrophils % 52.6 % (41.7-73.7); Nucleated Red Blood Cells % 0.1 % (0-0); Platelets 362 thou/uL (152-406); RBC Red Blood Cell Count 2.98 M/uL (3.86-4.86); Red Cell Distribution Width 17.7 % (12.1-15.2)
[2024-04-26 05:36] LABS: Albumin 2.3 g/dL (3.4-5.0); Anion Gap 3.7 mEq/L (5.0-15.0); Magnesium 2.5 mg/dL (1.6-2.4); Potassium 4.7 mEq/L (3.5-5.1); Prealbumin 12.1 mg/dL (20-40)
[2024-04-26 06:36] VITALS: TEMP 97.2
[2024-04-26 08:28] VITALS: O2SAT 92
[2024-04-26] MEDS: AMIODARONE HCL 200 MG TAB PO SCH (08:31)
[2024-04-26 10:24] VITALS: BP 106/49
--- NOTE | 2024-04-26 12:48 | P.PN ---
Subjective Date of Service: 04/26/24 Chief Complaint: BROKE R HIP She has less complaints today. Back part is doing better. she says she is better daily. she is being discharged today. stable but has chronic weakness and back issues. cont pt at home with hh. Physical Examination - Vital Signs Temperature: 97.2 F Blood Pressure: 106/49 Pulse: 60 Respirations: 18 Pulse Ox (%): 93 - Physical Exam General: Mild distress, Moderate distress HEENT: Atraumatic, PERRLA, EOMI Neck: Supple, JVD not distended Respiratory: Clear to auscultation bilaterally, Normal air movement Cardiovascular: Regular rate/rhythm, Normal S1 S2 Gastrointestinal: Normal bowel sounds, No tenderness Musculoskeletal: No tenderness Integumentary: No rashes Neurological: Normal speech, Normal tone, Normal affect Lymphatics: No axilla or inguinal lymphadenopathy - Studies Laboratory Data (last 24 hrs) 04/26/24 04/26/24 04:45 04:45 WBC 5.30 Hgb 9.2 L Hct 27.7 L Plt Count 362 Sodium 139 Potassium 4.7 BUN 22 H Creatinine 0.82 Glucose 85 Magnesium 2.5 H Medications List Reviewed: Yes Assessment And Plan - Current Problems (Diagnosis) (1) Closed right hip fracture Current Visit: Yes Status: Acute Plan: HAS HAD SURGERY CONT ANTIOCAG HISTORY OF A FIB STABLE CONT PT MAY NEED NH AFTER BEING HERE. SHE WILL NEED PROLIA ON OP BASIS WE WILL DO THIS VIA [facility] TO SEE IF IT IS AFFORDABLE. Qualifiers: Encounter type: initial encounter Qualified Code(s): S72.001A - Fracture of unspecified part of neck of right femur, initial encounter for closed fracture (2) History of atrial fibrillation Current Visit: Yes Status: Acute Plan: amio reduced as she was dizzy and fatigued. (3) Back pain Current Visit: Yes Status: Acute Plan: gabapentin trial she is now on Gabapentin, Hydrocodon. Lidocain patch she feels lot better. Qualifiers: Back pain location: low back pain (4) Abnormal urinalysis Current Visit: Yes Status: Acute Plan: ua pos no symptoms turbid urine per nurses CIpro for 5 days as she is elderly and high risk Usually asymptomatic are not treated.
== END 2024-04-26 13:05 | disposition home health service (06) | DRG 560 ==
LOC: 5TH 16:40
PROVIDERS: ADMIT Internal Medicine; ATTEND Internal Medicine
DX: S72.21XD Displaced subtrochanteric fracture of right femur, subsequent encounter for closed fracture with routine healing (principal); E46 Unspecified protein-calorie malnutrition; M81.0 Age-related osteoporosis without current pathological fracture; D64.9 Anemia, unspecified; D69.6 Thrombocytopenia, unspecified; I48.91 Unspecified atrial fibrillation; G47.00 Insomnia, unspecified; K59.00 Constipation, unspecified; M54.9 Dorsalgia, unspecified; E86.0 Dehydration; Z95.0 Presence of cardiac pacemaker; Z68.20 Body mass index [BMI] 20.0-20.9, adult
CPT/HCPCS: 36415; 72020; 72220; 74018; 80048; 81001; 82040; 83735; 84134; 85025; 87077; 87086; 87088; 87186; 93971; 94010; 97010; 97110; 97116; 97163; 97165; 97530; 97542; J2003; J7030

== ENCOUNTER 2024-12-01 17:26 | Emergency (ER) | payer OTHER ==
[2024-12-01] MEDS ORDERED: FENTANYL CITR 100 MCG/2 ML ONE (18:01)
[2024-12-01] MEDS ORDERED: ONDANSETRON 4 MG/2 ML VIAL ONE (18:01)
[2024-12-01] MEDS ORDERED: CEFTRIAXONE 1000 MG/VIAL ONE (18:01)
[2024-12-01] MEDS ORDERED: NA CHLORIDE 0.9% 1,000 ML ONE (18:02)
[2024-12-01] MEDS ORDERED: FAMOTIDINE 20 MG/2 ML VIAL IV ONE (18:02)
[2024-12-01] MEDS ORDERED: NA CHLORIDE 0.9% 100 ML ONE (18:02)
--- NOTE | 2024-12-01 18:35 | RAD REPORT ---
EXAMINATION: Stone Protocol CLINICAL INDICATION: Abdominal pain TECHNIQUE: CT abdomen and pelvis was performed, without IV contrast, as per department protocol. Oral contrast not given. Axial, sagittal and coronal reconstructions were obtained. One or more of the following dose reduction techniques were used: Automated exposure control, adjustment of the mA and k V according to the patient size, and iterative reconstruction. Unless otherwise specified, incidental findings do not require dedicated imaging follow-up. COMPARISON: October 2024 FINDINGS: The lack of intravenous and oral contrast limits the sensitivity of this exam for evaluation of solid visceral organs, vascular structures, and bowel Small to moderate left pleural effusion. Left lower lobe opacity. A right renal calculus not present. The prior exam a left ureteral stent has been placed. 5 mm calculus persists left UPJ. Moderate left hydronephrosis without significant change. Large gallstone. Gallbladder wall does not appear thickened. Liver, spleen, pancreas, adrenals and kidneys grossly normal. Filter within the IVC. No adnexal mass. Presacral edema. No evidence of diverticulitis. IMPRESSION: Placement of a left ureteral stent. Moderate left hydronephrosis without significant change. 5 mm joe culus left UPJ. Left lower lobe opacity may represent pneumonia or atelectasis. Small to moderate left pleural effusion.
[2024-12-01 18:37] LABS: Absolute Lymphocytes (CBC) 1.6 K/uL (0.7-4.9); Hematocrit 27.6 % (36.0-45.0); Hemoglobin 9.0 g/dL (12.0-15.0); MCH 31.7 pg (27.0-35.0); MCHC 32.6 g/dL (32.0-36.0); MCV 97.3 fL (80-100); MPV 8.3 fL (7.6-11.3); Nucleated RBC Absolute Count 0.0 (0-0); Nucleated Red Blood Cells % 0.0 % (0-0); RBC Red Blood Cell Count 2.84 M/uL (3.86-4.86); White Blood Count 7.10 thou/uL (4.3-10.9)
[2024-12-01 19:00] LABS: AST/SGOT 14 U/L (15-37); Albumin 2.1 g/dL (3.4-5.0); Albumin/Globulin Ratio 0.7 (1.1-1.8); Alkaline Phosphatase 72 U/L (45-117); Anion Gap 4.3 mEq/L (5.0-15.0); BUN Blood Urea Nitrogen 35 mg/dL (7-18); Globulin 3.2 g/dL (2.3-3.5); Glucose Level 96 mg/dL (74-106); Lipase 26 U/L (13-75); NT PRO-BNP 1229 pg/mL (<450); Potassium 3.3 mEq/L (3.5-5.1); Troponin High Sensitivity 17.8 pg/mL (<58.9)
[2024-12-01 19:01] LABS: ALT/SGPT < 14 U/L (13-56)
--- NOTE | 2024-12-01 19:16 | RAD REPORT ---
EXAMINATION: UPPER EXTREMITY VENOUS UNILATE CLINICAL INDICATION: Left arm pain TECHNIQUE: Complete bilateral duplex sonography of the left upper extremity veins was performed. The examination included compression for vein patency, color Doppler imaging and flow augmentation in response to distal compression of the internal jugular,, subclavian, axillary, brachial, radial, ulna r, cephalic and basilic veins. .Grayscale, color and spectral analysis performed on all vessels COMPARISON: No prior exam. FINDINGS: Acute thrombus is present within the mid left basilic vein. The left internal jugular, subclavian, axillary, brachial, veins are generally compressible and demon strate triphasic waveforms. Evaluation of cephalic vein suboptimal. Color Doppler demonstrates good flow. IMPRESSION: Acute thrombus left basilic vein
--- NOTE | 2024-12-01 19:26 | RAD REPORT ---
Procedure: Chest Single View HISTORY: Cough COMPARISON: October 2024 FINDINGS: Opacity behind the left side of the heart. Small left pleural effusion Scoliosis Pacemaker leads in place Heart is mildly enlarged IMPRESSION: Left lower lobe opacity may represent pneumonia or atelectasis
[2024-12-01 20:14] LABS: Sqamous Epithelial None Seen /HPF (None Seen); Urine Culture Reflex Order REFLEXED; Urine Microscopic Reflex YN ORDER UMIC; Urine WBC Clump Many /HPF (None Seen)
--- NOTE | 2024-12-01 20:49 | EDPHYS ---
Physician Documentation [facility] Name: Taylor Wheatley Age: 84 yrs Sex: Female : 1940 Arrival Date: 12/01/2024 Time: 17:26 Bed 19 Private MD: ED Physician Julio Winkler HPI: 12/01 18:17 This 84 yrs old Female presents to ER via EMS with complaints of Urinary eleonora Problem. 18:17 The patient complains of pain in the left low back and left mid back. The pain does not eleonora radiate. Modifying factors: The symptoms are alleviated by nothing. the symptoms are aggravated by nothing. Associated signs and symptoms: The patient has no apparent associated signs or symptoms. Severity of pain: At its worst the pain was moderate in the emergency department the pain is unchanged. Historical: - Allergies: 17:39 No Known Allergies; me1 - PMHx: 17:39 ibs; Osteoporosis; paroxysmal atrial fibrillation (Unknown); hypotension (Unknown); me1 liver disease (Unknown); Kidney disease; Kidney stone; - PSHx: 17:39 pacemaker; ureteral stent; me1 - Immunization history:: Adult Immunizations up to date. - Infectious Disease History:: Denies. - Social history:: Smoking status: Patient denies any tobacco usage or history of. ROS: 18:18 Constitutional: Negative for fever, chills, and weight loss, Eyes: Negative for injury, eleonora pain, redness, and discharge, ENT: Negative for injury, pain, and discharge, Neck: Negative for injury, pain, and swelling, Cardiovascular: Negative for chest pain, palpitations, and edema, Respiratory: Negative for shortness of breath, cough, wheezing, and pleuritic chest pain, Abdomen/GI: Negative for abdominal pain, nausea, vomiting, diarrhea, and constipation, : Negative for injury, bleeding, discharge, and swelling, MS/Extremity: Negative for injury and deformity, Skin: Negative for injury, rash, and discoloration, Neuro: Negative for headache, weakness, numbness, tingling, and seizure, Psych: Negative for depression, anxiety, suicide ideation, homicidal ideation, and hallucinations, Allergy/Immunology: Negative for hives, rash, and allergies, Endocrine: Negative for neck swelling, polydipsia, polyuria, polyphagia, and marked weight changes, Hematologic/Lymphatic: Negative for swollen nodes, abnormal bleeding, and unusual bruising, 18:18 Back: Positive for flank pain, Exam: 18:18 Constitutional: This is a well developed, well nourished patient who is awake, alert, eleonora and in no acute distress. Head/Face: Normocephalic, atraumatic. Eyes: Pupils equal round and reactive to light, extra-ocular motions intact. Lids and lashes normal. Conjunctiva and sclera are non-icteric and not injected. Cornea within normal limits. Periorbital areas with no swelling, redness, or edema. ENT: Nares patent. No nasal discharge, no septal abnormalities noted. Tympanic membranes are normal and external auditory canals are clear. Oropharynx with no redness, swelling, or masses, exudates, or evidence of obstruction, uvula midline. Mucous membranes moist. Neck: Trachea midline, no thyromegaly or masses palpated, and no cervical lymphadenopathy. Supple, full range of motion without nuchal rigidity, or vertebral point tenderness. No Meningismus. Chest/axilla: Normal chest wall appearance and motion. Nontender with no deformity. No lesions are appreciated. Cardiovascular: Regular rate and rhythm with a normal S1 and S2. No gallops, murmurs, or rubs. Normal PMI, no JVD. No pulse deficits. Respiratory: Lungs have equal breath sounds bilaterally, clear to auscultation and percussion. No rales, rhonchi or wheezes noted. No increased work of breathing, no retractions or nasal flaring. Abdomen/GI: Soft, non-tender, with normal bowel sounds. No distension or tympany. No guarding or rebound. No evidence of tenderness throughout. Back: No spinal tenderness. No costovertebral tenderness. Full range of motion. Skin: Warm, dry with normal turgor. Normal color with no rashes, no lesions, and no evidence of cellulitis. Neuro: Awake and alert, GCS 15, oriented to person, place, time, and situation. Cranial nerves II-XII grossly intact. Motor strength 5/5 in all extremities. Sensory grossly intact. Cerebellar exam normal. Normal gait. Psych: Awake, alert, with orientation to person, place and time. Behavior, mood, and affect are within normal limits. 18:18 Musculoskeletal/extremity: ROM: no acute changes, Circulation is intact in all extremities. Sensation intact. Compartment Syndrome exam of affected extremity: is normal. DVT Exam: pain, swelling, tenderness, 18:51 ECG was reviewed by the Attending Physician. eleonora Vital Signs: 17:30 BP 114 / 44; Pulse 67; Resp 15; Pulse Ox 100% ; me1 17:31 BP 120 / 53; Pulse 69; Resp 15; Temp 98.6; Pulse Ox 99% on 3 lpm NC; Height 5 ft. 5 in. me1 ; Pain 0/10; 18:30 BP 117 / 51; Pulse 64; Resp 16; Pulse Ox 100% ; me1 20:16 BP 124 / 42; Pulse 65; Resp 19; Temp 98.6; Pulse Ox 100% ; Pain 3/10; bm8 21:06 BP 125 / 44; Pulse 59; Resp 20; Temp 97.9; Pulse Ox 100% on 3 lpm NC; Pain 5/10; bm8 22:10 BP 127 / 46; Pulse 58; Resp 20; Temp 98; Pulse Ox 100% on 3 lpm NC; Pain 1/10; zm 23:10 BP 135 / 45; Pulse 58; Resp 17; Temp 98; Pulse Ox 100% on 3 lpm NC; Pain 2/10; bm8 12/02 00:09 BP 103 / 58; Pulse 59; Resp 18; Temp 98; Pulse Ox 100% on 3 lpm NC; Pain 0/10; bm8 17:31 Pain Scale: Adult me1 20:16 Pain Scale: Adult bm8 21:06 Pain Scale: Adult bm8 22:10 Pain Scale: Adult zm 23:10 Pain Scale: Adult bm8 12/02 00:09 Pain Scale: Adult bm8 Zenia Coma Score: 12/01 20:10 Eye Response: spontaneous(4). Motor Response: obeys commands(6). Verbal Response: bm8 oriented(5). Total: 15. 21:06 Eye Response: spontaneous(4). Motor Response: obeys commands(6). Verbal Response: bm8 confused(4). Total: 14. 22:10 Eye Response: spontaneous(4). Motor Response: obeys commands(6). Verbal Response: zm oriented(5). Total: 15. 23:10 Eye Response: spontaneous(4). Motor Response: obeys commands(6). Verbal Response: bm8 oriented(5). Total: 15. 12/02 00:09 Eye Response: spontaneous(4). Motor Response: obeys commands(6). Verbal Response: bm8 oriented(5). Total: 15. MDM: 12/01 17:36 Medical Screening Exam initiated eleonora 18:20 Data reviewed: vital signs, nurses notes, lab test result(s), EKG, radiologic studies. eleonora 19:09 Transition of care: Care assumed from Bhupendra Zuniga MD. ms3 21:56 Differential diagnosis: nephrolithiasis, UTI, myocardia ischemia or infarction, ms3 non-specific abd pain. Consideration of Admission/Observation Will transfer as patient has ureteral stent with new AMS, elevated WBC, RBC in urine. 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 I considered the following discharge prescriptions or medication management in the emergency department Medications were administered in the Emergency Department. See MAR. Counseling: I had a detailed discussion with the patient and/or guardian regarding the historical points, exam findings, and any diagnostic results supporting the discharge/admit diagnosis, lab results, radiology results, the need to transfer to another facility, [facility] does not immediately have the required specialist. 12/01 17:38 Order name: CBC with Diff; Complete Time: 19:01 [facility] 12/01 17:38 Order name: CMP; Complete Time: 19:01 [facility] 12/01 17:38 Order name: Lipase; Complete Time: 19:01 [facility] 12/01 17:38 Order name: UA Rfx Ector Cult if indicated; Complete Time: 20:33 [facility] 12/01 18:38 Order name: Troponin High Sensitivity; Complete Time: 19:01 [facility] 12/01 18:38 Order name: NT PRO-BNP; Complete Time: 19:01 [facility] 12/01 20:19 Order name: Urine Culture [facility] 12/01 17:38 Order name: CT Stone Protocol; Complete Time: 19:01 [facility] 12/01 18:21 Order name: Chest Single View XRAY; Complete Time: 19:43 [facility] 12/01 19:02 Order name: UPPER EXTREMITY VENOUS UNILATE; Complete Time: 19:43 [facility] 12/01 21:09 Order name: US Extremity Venous Unilateral Ltd; Complete Time: 21:53 [facility] 12/01 17:38 Order name: IV Saline Lock; Complete Time: 18:30 eleonora 12/01 17:38 Order name: Labs collected and sent; Complete Time: 18:30 eleonora 12/01 18:21 Order name: EKG - Nurse/Tech; Complete Time: 18:36 eleonora EC:51 Rate is 63 beats/min. Rhythm is regular. QRS [place] is Normal. UT interval is normal. QRS eleonora interval is normal. QT interval is normal. No Q waves. T waves are Normal. No ST changes noted. Clinical impression: NSR w/ Non-specific ST/T Changes and No evidence of ischemia. Interpreted by me. Reviewed by me. Administered Medications: 18:39 Drug: Famotidine IVP 20 mg IVP once; dilute with 10 mL 0.9% NaCl; give over 2 minutes me1 Route: IVP; Site: right wrist; 18:46 Follow up: Response: No adverse reaction me1 18:39 Drug: fentaNYL (PF) IVP 25 mcg IVP once Route: IVP; Site: right wrist; me1 18:45 Follow up: Response: No adverse reaction; Pain is decreased me1 18:40 Drug: Ondansetron IVP 4 mg IVP once; over 2 minutes Route: IVP; Site: right wrist; me1 18:45 Follow up: Response: No adverse reaction; Nausea is decreased me1 18:40 Drug: NS 0.9% IV 1000 ml IV at 1 bolus Per protocol; to be given as a bolus over 60 me1 minutes Route: IV; Rate: 1 bolus; Site: right wrist; 20:15 Follow up: Response: No adverse reaction; IV Status: Completed infusion bm8 19:38 Drug: Rocephin IV 1 grams IV at per protocol once; Given slow IV push per pharmacy bm8 instructions Route: IV; Rate: per protocol; Site: right forearm; 20:15 Follow up: Response: No adverse reaction; IV Status: Completed infusion bm8 22:53 Drug: AZITHromycin IVPB 500 mg IVPB once over 1 hrs; (mix in 250 mL NS) Route: IVPB; bm8 Infused Over: 1 hrs; Site: right forearm; 12/02 00:11 Follow up: Response: No adverse reaction; IV Status: Completed infusion bm8 Disposition Summary: 12/01/24 20:49 Transfer Ordered Notes: Transfer Location: [facility] ms3 Reason: Higher level of care ms3 Condition: Stable ms3 Problem: new ms3 Symptoms: are unchanged ms3 Accepting Physician: [facility](12/02/24 00:13) bm8 Diagnosis - UTI/ Urinary tract infection, site not specified ms3 - Altered mental status, unspecified ms3 - Heart failure, unspecified ms3 - Pleural effusion, not elsewhere classified ms3 - Anemia, unspecified ms3 Forms: - Medication Reconciliation Form ms3 - SBAR form ms3 Signatures: Dispatcher [employer] EDMS Bhupendra Zuniga MD MD cha Sims, Marcus, DO ms3 Anne Quinteros, RN RN me1 Jacob Barrera, RN RN bm8 Corrections: (The following items were deleted from the chart) 12/01 18:38 18:21 Troponin High Sensitivity+C.LAB.BRZ ordered. EDMS EDMS 18:38 18:21 PROBNP+C.LAB.BRZ ordered. EDMS EDMS 19:02 18:17 Extremity Venous Uni Ltd+US.RAD.BRZ ordered. EDMS EDMS 20:50 20:49 [facility] ms3 ms3 22:53 22:38 [facility] ordered. ms3 bm8 12/02 00:13 12/01 20:50 [facility] ms3 bm8
--- NOTE | 2024-12-01 20:49 | ER ---
Nurse's Notes [facility] Name: Taylor Wheatley Age: 84 yrs Sex: Female : 1940 Arrival Date: 12/01/2024 Time: 17:26 Bed 19 Private MD: Diagnosis: UTI/ Urinary tract infection, site not specified;Altered mental status, unspecified;Heart failure, unspecified;Pleural effusion, not elsewhere classified;Anemia, unspecified Presentation: 12/01 17:31 Chief complaint: EMS states: toned out to [facility] because son wants patient's me1 kidney stent removed. He said she has a stone and last time she became septic. Patient's only complaint is that she has burning with urination. room air sat 90% RA, put on 2 lpm via nc and sat increased to 97%. Coronavirus screen: At this time, the client does not indicate any symptoms associated with coronavirus-19. Ebola Screen: No symptoms or risks identified at this time. Initial Sepsis Screen: Does the patient meet any 2 criteria? No. Patient's initial sepsis screen is negative. Does the patient have a suspected source of infection? No. Patient's initial sepsis screen is negative. Risk Assessment: Do you want to hurt yourself or someone else? Patient reports no desire to harm self or others. Onset of symptoms is unknown. 17:31 Method Of Arrival: EMS: [place] [id number] 17:31 Acuity: DAVID 3 me1 Triage Assessment: 17:39 General: Appears in no apparent distress. Behavior is calm, cooperative, appropriate me1 for age. Pain: Complains of pain in left mid back and left low back Pain does not radiate. Pain currently is 5 out of 10 on a pain scale. Quality of pain is described as aching, dull, Pain began gradually, Is continuous. EENT: No signs and/or symptoms were reported regarding the EENT system. Neuro: Level of Consciousness is awake, alert, obeys commands, Oriented to person, place, situation, Appropriate for age. Cardiovascular: Patient's skin is warm and dry. Respiratory: Airway is patent Respiratory effort is even, unlabored, Respiratory pattern is regular, symmetrical. GI: No signs and/or symptoms were reported involving the gastrointestinal system. : Reports burning with urination, has a ureteral stent in place. Derm: Skin is fragile, is thin, Skin is normal. Musculoskeletal: No signs and/or symptoms reported regarding the musculoskeletal system. Circulation, motion, and sensation intact. Range of motion: unsteady gait. Ambulates with assistance. Historical: - Allergies: 17:39 No Known Allergies; me1 - PMHx: 17:39 ibs; Osteoporosis; paroxysmal atrial fibrillation (Unknown); hypotension (Unknown); me1 liver disease (Unknown); Kidney disease; Kidney stone; - PSHx: 17:39 pacemaker; ureteral stent; me1 - Immunization history:: Adult Immunizations up to date. - Infectious Disease History:: Denies. - Social history:: Smoking status: Patient denies any tobacco usage or history of. Screenin:43 [facility] ED Fall Risk Assessment (Adult) History of falling in the last 3 months, me1 including since admission No falls in past 3 months (0 pts) Confusion or Disorientation No (0 pts) Intoxicated or Sedated No (0 pts) Impaired Gait Yes (1 pt) Mobility Assist Device Used Yes (1 pt) Altered Elimination Yes (1 pt) Score/Fall Risk Level 3 or more points = High Risk Maintained a safe environment, Hourly rounding (assess needs \T\ fall precautionary measures) done, Used ambulatory aids as needed (educated on \T\ assisted with). Abuse screen: Denies threats or abuse. Nutritional screening: No deficits noted. Tuberculosis screening: No symptoms or risk factors identified. Assessment: 17:43 General: See triage assessment. me1 20:10 Reassessment: Patient appears in no apparent distress at this time. Patient and/or bm8 family updated on plan of care and expected duration. Pain level reassessed. Pain: Complains of pain in groin Unable to use pain scale. Patient is disoriented. pt did not give number for 1-10 pain scale but showed obvious signs of pain, during urination and during cathing procedure. Neuro: Level of Consciousness is awake, alert, obeys commands, confused, Oriented to person, place, Appropriate for age. Cardiovascular: No deficits noted. Respiratory:. GI: No deficits noted. : Urine is cloudy, blood tinged, Reports pain with urination. EENT: No deficits noted. Derm: Wound noted coccyx Wound is pt has fresh bandage from [facility]. bandage not removed. Musculoskeletal: No signs and/or symptoms reported regarding the musculoskeletal system. 21:01 Reassessment: PER NURSING STAFF AT [facility] [place] PT IS NORMALLY AOX2 WITH INTERMITTENT br2 CONFUSION. PT HAS BEEN DISORIENTED FOR THIS LAST WEEK SINCE SHE HAS BEEN SOB AND EDEMA TO BLE. PER [facility]MA PT WAS GIVEN ADDITIONAL LASIX AND A EARLY WAS PUT IN PLACE, BUT UNABLE TO REDUCE BLE SWELLING. DR HARRIS NOTIFIED AND PRIMARY NURSE (ABDELRAHMAN) NOTIFIED. 21:06 Reassessment: Patient appears in no apparent distress at this time. Patient and/or bm8 family updated on plan of care and expected duration. Pain level reassessed. Neuro: Level of Consciousness is awake, alert, obeys commands, confused, Oriented to person, pt is more confused than when fist assessed, called [facility] and they stated that this a new onset confusion.. 22:10 Reassessment: Patient appears in no apparent distress at this time. No changes from zm previously documented assessment. Patient and/or family updated on plan of care and expected duration. Pain level reassessed. Patient is alert, oriented x 3, equal unlabored respirations, skin warm/dry/pink. Patient states symptoms have not improved. 22:53 Reassessment: pt declined early after being educated on the need for one. provider bm8 informed. 23:10 Reassessment: Patient appears in no apparent distress at this time. Patient and/or bm8 family updated on plan of care and expected duration. Pain level reassessed. pt is resting in bed watching tv. No apparent distress noted resp are even unlabored Patient denies pain at this time. 23:39 Reassessment: report to AUDREY Riddle at [facility]. bm8 12/02 00:09 Reassessment: Patient appears in no apparent distress at this time. Patient and/or bm8 family updated on plan of care and expected duration. Pain level reassessed. Pt being loaded onto ems stretcher at this time. Patient denies pain at this time. Vital Signs: 12/01 17:30 BP 114 / 44; Pulse 67; Resp 15; Pulse Ox 100% ; me1 17:31 BP 120 / 53; Pulse 69; Resp 15; Temp 98.6; Pulse Ox 99% on 3 lpm NC; Height 5 ft. 5 in. me1 ; Pain 0/10; 18:30 BP 117 / 51; Pulse 64; Resp 16; Pulse Ox 100% ; me1 20:16 BP 124 / 42; Pulse 65; Resp 19; Temp 98.6; Pulse Ox 100% ; Pain 3/10; bm8 21:06 BP 125 / 44; Pulse 59; Resp 20; Temp 97.9; Pulse Ox 100% on 3 lpm NC; Pain 5/10; bm8 22:10 BP 127 / 46; Pulse 58; Resp 20; Temp 98; Pulse Ox 100% on 3 lpm NC; Pain 1/10; zm 23:10 BP 135 / 45; Pulse 58; Resp 17; Temp 98; Pulse Ox 100% on 3 lpm NC; Pain 2/10; bm8 12/02 00:09 BP 103 / 58; Pulse 59; Resp 18; Temp 98; Pulse Ox 100% on 3 lpm NC; Pain 0/10; bm8 17:31 Pain Scale: Adult me1 20:16 Pain Scale: Adult bm8 21:06 Pain Scale: Adult bm8 22:10 Pain Scale: Adult zm 23:10 Pain Scale: Adult bm8 12/02 00:09 Pain Scale: Adult bm8 Malone Coma Score: 12/01 20:10 Eye Response: spontaneous(4). Motor Response: obeys commands(6). Verbal Response: bm8 oriented(5). Total: 15. 21:06 Eye Response: spontaneous(4). Motor Response: obeys commands(6). Verbal Response: bm8 confused(4). Total: 14. 22:10 Eye Response: spontaneous(4). Motor Response: obeys commands(6). Verbal Response: zm oriented(5). Total: 15. 23:10 Eye Response: spontaneous(4). Motor Response: obeys commands(6). Verbal Response: bm8 oriented(5). Total: 15. 12/02 00:09 Eye Response: spontaneous(4). Motor Response: obeys commands(6). Verbal Response: bm8 oriented(5). Total: 15. ED Course: 12/01 17:30 Patient arrived in ED. me1 17:36 Bhupendra Zuniga MD is Attending Physician. [facility] 17:39 Triage completed. me1 17:39 Arm band placed on Patient placed in an exam room. me1 17:43 Patient has correct armband on for positive identification. Bed in low position. Call me1 light in reach. Side rails up X2. Provided Education on: POC. Verbalized understanding.. Client placed on continuous cardiac and pulse oximetry monitoring. NIBP monitoring applied. monitor and storage bin tender on. Pulse ox on. NIBP on. 17:43 No provider procedures requiring assistance completed. me1 17:58 Anne Quinteros, RN is Primary Nurse. me1 18:05 CT Stone Protocol In Process Unspecified. EDMS 18:30 CBC with Diff Sent. me1 18:30 CMP Sent. me1 18:30 Lipase Sent. me1 18:36 Initial lab(s) drawn, by me, sent to lab. Missed attempt(s): 22 gauge in right hand. kc6 Inserted saline lock: 24 gauge in right forearm, using aseptic technique. Blood collected. Flushed with 10 mL NS. Patient maintains SpO2 saturation greater than 95% on room air. 18:39 NT PRO-BNP Sent. me1 18:39 Troponin High Sensitivity Sent. me1 19:02 UPPER EXTREMITY VENOUS UNILATE In Process Unspecified. EDMS 19:04 Report received from Audrey Rodríguez. bm8 19:09 Attending Physician role handed off by Bhupendra Zuniga MD ms3 19:09 Julio Harris DO is Attending Physician. ms3 19:18 Chest Single View XRAY In Process Unspecified. EDMS 19:39 Urine collected: straight cath specimen, blood tinged, cara blood. bm8 20:10 pt diaper changed. Cleaned of incontinence. bm8 20:56 initiated transfer with tito at [facility]. kmf 21:34 US Extremity Venous Unilateral Ltd In Process Unspecified. EDMS 22:34 pt was accepted to [facility]. Accepting Dr. Merino 2233. kmf 23:[address] [facility] \T\ 2234. Accepting Dr. Merino \T\ 4. Accepting admin 2334 km f Farzaneh Carlson. Number for nurse to nurse report [phone]. 12/02 00:09 Provided Education on: need for transfer. bm8 00:09 Patient transferred, IV remains in place. bm8 Administered Medications: 12/01 18:39 Drug: Famotidine IVP 20 mg IVP once; dilute with 10 mL 0.9% NaCl; give over 2 minutes me1 Route: IVP; Site: right wrist; 18:46 Follow up: Response: No adverse reaction me1 18:39 Drug: fentaNYL (PF) IVP 25 mcg IVP once Route: IVP; Site: right wrist; me1 18:45 Follow up: Response: No adverse reaction; Pain is decreased me1 18:40 Drug: Ondansetron IVP 4 mg IVP once; over 2 minutes Route: IVP; Site: right wrist; me1 18:45 Follow up: Response: No adverse reaction; Nausea is decreased me1 18:40 Drug: NS 0.9% IV 1000 ml IV at 1 bolus Per protocol; to be given as a bolus over 60 me1 minutes Route: IV; Rate: 1 bolus; Site: right wrist; 20:15 Follow up: Response: No adverse reaction; IV Status: Completed infusion bm8 19:38 Drug: Rocephin IV 1 grams IV at per protocol once; Given slow IV push per pharmacy bm8 instructions Route: IV; Rate: per protocol; Site: right forearm; 20:15 Follow up: Response: No adverse reaction; IV Status: Completed infusion bm8 22:53 Drug: AZITHromycin IVPB 500 mg IVPB once over 1 hrs; (mix in 250 mL NS) Route: IVPB; bm8 Infused Over: 1 hrs; Site: right forearm; 12/02 00:11 Follow up: Response: No adverse reaction; IV Status: Completed infusion bm8 Medication: 12/01 17:43 VIS not applicable for this client. me1 Outcome: 20:49 ER care complete, transfer ordered by ms3 12/02 00:09 Transferred by ground EMS to [facility], Transfer form completed. bm8 X-rays sent w/ patient. Condition: stable Instructed on the need for transfer, Demonstrated understanding of instructions, follow-up care, 00:13 Patient left the ED. bm8 Signatures: Dispatcher [employer] Bhupendra France MD MD cha Sims, Marcus, DO DO ms3 Leticia Davidson, RN Corinna Kingsley RN RN [id number] Anne Quinteros RN RN me1 Tamiko Gupta [facility] Jacob Barrera RN RN bm8 Norah Berry RN RN br2 Corrections: (The following items were deleted from the chart) 12/01 18:46 17:39 Pain: Denies pain. me1 me1
--- NOTE | 2024-12-01 21:48 | RAD REPORT ---
EXAM:Extremity Venous Uni Ltd HISTORY: Left leg pain TECHNIQUE: Sonographic evaluation left lower extremity performed.Grayscale, color and spectral analys is performed on all vessels COMPARISON: None. FINDINGS: Echogenic material is present throughout the left common femoral, left superficial femoral and left p opliteal veins consistent with acute thrombus. Veins are not compressible with minimal flow. IMPRESSION: Acute left lower extremity deep venous thrombosis
[2024-12-01] MEDS ORDERED: AZITHROMYCIN 500 MG INJ IVPB ONE (22:48)
[2024-12-01] MEDS ORDERED: NA CHLORIDE 0.9% 250 ML ONE (22:49)
[2024-12-02 05:14] VITALS: O2SAT 100
[2024-12-02 05:20] VITALS: TEMP 98
[2024-12-02 05:23] VITALS: BP 103/58
== END 2024-12-02 00:13 | disposition short-term general hospital (02) ==
LOC: ER 17:26
DX: N39.0 Urinary tract infection, site not specified (principal); J90 Pleural effusion, not elsewhere classified; D64.9 Anemia, unspecified; I50.9 Heart failure, unspecified; Z87.442 Personal history of urinary calculi; Z95.0 Presence of cardiac pacemaker
CPT/HCPCS: 96365; 96367; 96361; 93005; 87088; 85025; 81001; 87086; 36415; 87077; 87186; 84484; 83690; 80053; 83880; 76377; 74176; 71045; 93971 ×2; 96375; 99285; J0456; J3010; J2405; J7050; J7030; J0696